=== PATIENT | male | born 1945 | race Caucasian/White ===

== ENCOUNTER 2017-05-27 14:25 | Inpatient (IN) | payer MEDICARE ==
[~2017-05-27] VITALS: Ht 175.3 cm; Wt 98.4 kg
[~2017-05-27 14:25] MED LIST: ALBUTEROL2.5 MG/3 M NEB; IPRATROPIU0.2 MG/1 M NEB; PREDNISONE20 MG PO; ULTRAM 50MG50 MG PO
--- OUTSIDE RECORDS SUMMARY | 2017-05-27 14:28 | XMS REPORT | Clinical Summary ---
Author Author DANISH [employer] [facility] [employer] [facility] Address Unknown Phone Unavailable Care Team Providers Care Test Facility Engineer Name Role Phone PCP Unavailable Allergies No Known Allergies Current Medications Prescription Sig. Disp. Refills Start End Date Status Date ipratropium (ATROVENT Inhale 2 puffs by mouth Active HFA) 17 mcg/actuation via inhaler as needed for inhaler Wheezing. albuterol (PROVENTIL) 2.5 Take 3 mLs (2.5 mg total) 75 mL 0 02/17/20 02/17/20 Active mg /3 mL (0.083 %) by nebulization every 6 17 18 nebulizer solution (six) hours as needed for Wheezing. albuterol (PROVENTIL) 2.5 Take 2.5 mg by 02/17/20 Discontin mg/0.5 mL Nebu nebulizer nebulization as needed. 17 ued solution predniSONE (DELTASONE) 20 Take 2 tablets (40 mg 10 tablet 0 02/17/20 02/22/20 MG tablet total) by mouth daily for 17 17 5 days. doxycycline (VIBRAMYCIN) Take 1 capsule (100 mg 20 capsule 0 02/17/20 02/27/20 100 MG capsule total) by mouth 2 (two) 17 17 times daily for 10 days. Active Problems Not on file Encounters Date Type Specialty Care Team Description 02/16/2017 Emergency Emergency Medicine Maurice Yuan MD Chest pain with moderate risk of acute coronary syndrome (Primary Dx);COPD with acute exacerbation (HCC);Shortness of breath 02/16/2017 Orders Only General Internal Medicine after 05/26/2016 Social History Tobacco Use Types Packs/Day Years Used Date Former Smoker Smokeless Tobacco: Chew Current User Alcohol Use Drinks/Week oz/Week Comments No Sex Assigned at Date Recorded Not on file Last Filed Vital Signs Vital Sign Reading Time Taken Blood Pressure 116/63 02/16/2017 8:30 PM CDT Pulse 80 02/16/2017 8:30 PM CDT Temperature 36.6 C (97.8 F) 02/16/2017 7:08 PM CDT Respiratory Rate 20 02/16/2017 7:30 PM CDT Oxygen Saturation 97% 02/16/2017 8:30 PM CDT Inhaled Oxygen - - Concentration Weight 92.5 kg (204 lb) 02/16/2017 7:08 PM CDT Height 175.3 cm (5' 9") 02/16/2017 7:08 PM CDT Body Mass Index 30.13 02/16/2017 7:08 PM CDT Plan of Treatment Not on file Results * CBC with platelet count + automated diff (02/16/2017 8:06 PM) Component Value Ref Range WBC 7.6 3.5 - 10.5 K/ L RBC 4.72 4.63 - 6.08 M/ L Hemoglobin 15.2 13.7 - 17.5 GM/DL Hematocrit 46.5 40.1 - 51.0 % MCV 98.5 (H) 79.0 - 92.2 fL MCH 32.2 25.7 - 32.2 pg MCHC 32.7 32.3 - 36.5 GM/DL RDW 12.9 11.6 - 14.4 % Platelets 245 150 - 450 K/CU MM MPV 8.8 (L) 9.4 - 12.4 fL nRBC 0 0 - 0 /100 WBC % Neutros 56 % % Lymphs 26 % % Monos 10 % % Eos 7 % % Baso 1 % # Neutros 4.28 1.78 - 5.38 K/ L # Lymphs 1.97 1.32 - 3.57 K/ L # Monos 0.76 0.30 - 0.82 K/ L # Eos 0.51 0.04 - 0.54 K/ L # Baso 0.07 0.01 - 0.08 K/ L Immature 0 0 - 1 % Granulocytes-Relative Specimen Performing Laboratory Blood - Arm, Left [facility] [address] [place] [address] * Troponin I (02/16/2017 8:06 PM) Component Value Ref Range Troponin I <0.01 0.00 - 0.03 ng/mL Specimen Performing Laboratory Blood - Arm, Left [facility] [address] [place] [address] Narrative Troponin I (TnI) levels must be interpreted in the context of the presenting symptoms and the clinical findings. Elevated TnI levels indicate myocardial damage, but are not specific for ischemic heart disease. Elevated TnI levels are seen in patients with other cardiac conditions (including myocarditis and congestive heart failure), and slight TnI elevations occur in patients with other conditions, including sepsis, renal failure, acidosis, acute neurological disease, and persistent tachyarrhythmia. * CBC with platelet count + automated diff (02/16/2017 8:06 PM) Specimen Performing Laboratory Blood Narrative The following orders were created for panel order CBC with platelet count + automated diff. Procedure Abnormality Status --------- - ------ CBC with platelet count ...[[id number]]AbnormalFinal result Please view results for these tests on the individual orders. * B-type Natriuretic Factor (BNP) (02/16/2017 8:06 PM) Component Value Ref Range BNP <10 0 - 100 pg/mL Specimen Performing Laboratory Blood - Arm, [address] [address] * Creatine Kinase (CK), Total and MB (02/16/2017 8:06 PM) Component Value Ref Range Total CK 164 29 - 200 U/L CK-MB 3.2 0.0 - 6.6 ng/mL MB Relative Index 2.0 % Specimen Performing Laboratory Blood - Arm, [address] [address] Narrative CK-MB Reference Range: <6.7Normal 6.7-10.0Borderline >10.0 Abnormal * Basic Metabolic Panel (02/16/2017 8:06 PM) Component Value Ref Range Sodium 140 136 - 145 meq/L Potassium 4.1Comment: Specimen slightly hemolyzed 3.5 - 5.1 meq/L Chloride 110 (H) 98 - 107 meq/L CO2 20 (L) 22 - 29 meq/L BUN 15 7 - 21 mg/dL Creatinine 1.29 (H)Comment: Specimen slightly hemolyzed 0.57 - 1.25 mg/dL Glucose 84 70 - 105 mg/dL Calcium 9.4 8.4 - 10.2 mg/dL EGFR 55Comment: ESTIMATED GFR IS NOT ACCURATE mL/min/1.73 sq m CREATININE CLEARANCE IN PREDICTING GLOMERULAR FILTRATION RATE. ESTIMATED GFR IS NOT APPLICABLE FOR DIALYSIS PATIENTS. Specimen Performing Laboratory Blood - Arm, Left [facility] [address] [address] * XR chest 1 view portable / bedside (02/16/2017 7:32 PM) Specimen Performing Laboratory GE RIS Narrative FINAL REPORT Comparison examination: None No pneumothorax, focal pulmonary consolidation, or significant pleural effusion. Normal cardiomediastinal contours. Normal skeleton and soft tissues. Impression: No acute abnormality. Signed: Shakir Stephen MD Report Verified Date/Time:02/16/2017 20:22:13 Reading Location: [address] Ortho Consult Reading Room Procedure Note Interface, External Ris In - 02/16/2017 8:24 PM CDT FINAL REPORT Comparison examination: None No pneumothorax, focal pulmonary consolidation, or significant pleural effusion. Normal cardiomediastinal contours. Normal skeleton and soft tissues. Impression: No acute abnormality. Signed: Shakir Stephen MD Report Verified Date/Time: 02/16/2017 20:22:13 Reading Location: [facility] C013 Ortho Consult Reading Room * ECG 12 lead (02/16/2017 7:16 PM) Specimen Performing Laboratory GE MUSE Narrative Ventricular Rate 78 BPM Atrial Rate 78 BPM P-R Interval 148 ms QRS Duration 106 ms Q-T Interval 384 ms QTC Calculation(Bazett) 437 ms P [place] 87 degrees R Dalton -35 degrees T Dalton 74 degrees Normal sinus rhythm Left axis deviation Abnormal ECG No previous ECGs available Confirmed by MD RAHEL, [facility] ([id number]) on 02/17/2017 6:02:25 PM Procedure Note Interface, External Ris In - 02/17/2017 6:02 PM CDT Ventricular Rate 78 BPM Atrial Rate 78 BPM P-R Interval 148 ms QRS Duration 106 ms Q-T Interval 384 ms QTC Calculation(Bazett) 437 ms P [place] 87 degrees R Dalton -35 degrees T [place] 74 degrees Normal sinus rhythm Left axis deviation Abnormal ECG No previous ECGs available Confirmed by MD RAHEL, YESSY ([id number]) on 02/17/2017 6:02:25 PM after 05/26/2016
--- OUTSIDE RECORDS SUMMARY | 2017-05-27 14:28 | XMS REPORT ---
Author Author [facility] Address Unknown Phone Unavailable Care Team Providers Care Blending Operator Name Role Phone MASON MARTÍNEZ Unavailable Unavailable ARMANDO WOLF Unavailable Unavailable FRANCINE SANDOVAL Unavailable Unavailable Problems This patient has no known problems. Allergies, Adverse Reactions, Alerts This patient has no known allergies or adverse reactions. Medications This patient has no known medications. Encounters Start Date/Time End Date/Time Encounter Type Admission Type Attending [facility] Facility Care Department Encounter ID 2017-01-24 00:00:00 2017-01-24 00:00:[address] [facility] [id number] 2017-01-17 00:00:00 2017-01-17 00:00:[address] [facility] [id number] 2017-01-03 13:40:00 2017-01-03 13:40:[address] [facility] [id number] 2016-12-18 00:00:00 2016-12-18 00:00:[address] [facility] [id number] 2016-12-07 00:00:00 2016-12-07 00:00:[address] [facility] [id number] 2016-12-04 06:19:36 2016-12-04 06:19:[address] [facility] [id number] 2016-12-03 10:40:23 2016-12-03 10:40:[address] [facility] [id number] 2016-12-03 09:42:52 2016-12-03 09:42:52 Outpatient [facility] [id number] Results Test Description Test Time Test Comments Text Results Atomic Results Result Comments B-TYPE NATRIURETIC FACTOR (BNP) 2017-02-16 21:21:00 B-TYPE NATRIURETIC PEPTIDE (BEAKER) (test fbac=523) < pg/mL 0-100 CREATINE KINASE (CK), TOTAL AND [id number] 20:55:00* Test Item Value Reference Range Comments CREATINE KINASE TOTAL (BEAKER) (test lzlk=012) 164 U/L 29-200 CREATINE KINASE-MB (BEAKER) (test fiwz=193) 3.2 ng/mL 0.0-6.6 CREATINE KINASE-MB INDEX (BEAKER) (test vwuf=653) 2.0 % CK-MB Reference Range:<6.7 Normal6.7-10.0 Borderline>10.0 AbnormalTROPONIN [id number] 20:55:00* Test Item Value Reference Range Comments TROPONIN I (BEAKER) (test pfhv=201) < ng/mL 0.00-0.03 Troponin I (TnI) levels must be interpreted [...] failure, acidosis, acute neurological disease, and persistent tachyarrhythmia.BASIC METABOLIC [id number] 20:49:00 * Test Item Value Reference Range Comments SODIUM (BEAKER) (test fyaf=650) 140 meq/L 136-145 POTASSIUM (BEAKER) (test dczt=146) 4.1 meq/L 3.5-5.1 Specimen slightly hemolyzed CHLORIDE (BEAKER) (test cshb=565) 110 meq/L 98-107 CO2 (BEAKER) (test wnfw=368) 20 meq/L 22-29 BLOOD UREA NITROGEN (BEAKER) (test xswj=607) 15 mg/dL 7-21 CREATININE (BEAKER) (test acea=996) 1.29 mg/dL 0.57-1.25 Specimen slightly hemolyzed GLUCOSE RANDOM (BEAKER) (test xoef=707) 84 mg/dL 70-105 CALCIUM (BEAKER) (test zukm=261) 9.4 mg/dL 8.4-10.2 EGFR (BEAKER) (test beoa=8040) 55 mL/min/1.73 sq m ESTIMATED GFR IS NOT ACCURATE CREATININE CLEARANCE IN PREDICTING GLOMERULAR FILTRATION RATE. ESTIMATED GFR IS NOT APPLICABLE FOR DIALYSIS PATIENTS. RAD, CHEST, 1 VIEW, NON [id number] 20:22:00Reason for exam:->SHORTNESS OF BREATHReason for exam:->CHEST PAINReason for exam:->COUGHShould this be performed at the bedside?->YesFINAL REPORT Comparison examination: None No pneumothorax, focal pulmonary consolidation, or significant pleural effusion. Normal cardiomediastinal contours. Normal skeleton and soft tissues. Impression: No acute abnormality. Signed: Shakir Stephen Verified Date/Time: 02/16/2017 20:22:13 Reading Location: [address] Ortho Consult Reading Room W/PLT COUNT & AUTO [id number] 20:21: 00* Test Item Value Reference Range Comments WHITE BLOOD CELL COUNT (BEAKER) (test ensm=545) 7.6 K/ L 3.5-10.5 RED BLOOD CELL COUNT (BEAKER) (test waqu=875) 4.72 M/ L 4.63-6.08 HEMOGLOBIN (BEAKER) (test eezg=255) 15.2 GM/DL 13.7-17.5 HEMATOCRIT (BEAKER) (test jotm=328) 46.5 % 40.1-51.0 MEAN CORPUSCULAR VOLUME (BEAKER) (test pbjv=613) 98.5 fL 79.0-92.2 MEAN CORPUSCULAR HEMOGLOBIN (BEAKER) (test obda=501) 32.2 pg 25.7-32.2 MEAN CORPUSCULAR HEMOGLOBIN CONC (BEAKER) (test hrpk=746) 32.7 GM/DL 32.3- 36.5 RED CELL DISTRIBUTION WIDTH (BEAKER) (test pubj=909) 12.9 % 11.6-14.4 PLATELET COUNT (BEAKER) (test txnu=130) 245 K/CU MM 150-450 MEAN PLATELET VOLUME (BEAKER) (test bxge=423) 8.8 fL 9.4-12.4 NUCLEATED RED BLOOD CELLS (BEAKER) (test cvxk=225) 0 /100 WBC 0-0 NEUTROPHILS RELATIVE PERCENT (BEAKER) (test ygzz=518) 56 % LYMPHOCYTES RELATIVE PERCENT (BEAKER) (test defn=911) 26 % MONOCYTES RELATIVE PERCENT (BEAKER) (test jxpo=832) 10 % EOSINOPHILS RELATIVE PERCENT (BEAKER) (test ovjg=230) 7 % BASOPHILS RELATIVE PERCENT (BEAKER) (test wzuu=284) 1 % NEUTROPHILS ABSOLUTE COUNT (BEAKER) (test ovkn=126) 4.28 K/ L 1.78-5.38 LYMPHOCYTES ABSOLUTE COUNT (BEAKER) (test zdml=274) 1.97 K/ L 1.32-3.57 MONOCYTES ABSOLUTE COUNT (BEAKER) (test uofl=237) 0.76 K/ L 0.30-0.82 EOSINOPHILS ABSOLUTE COUNT (BEAKER) (test gdyg=106) 0.51 K/ L 0.04-0.54 BASOPHILS ABSOLUTE COUNT (BEAKER) (test cejf=291) 0.07 K/ L 0.01-0.08 IMMATURE GRANULOCYTES-RELATIVE PERCENT (BEAKER) (test sdgl=7573) 0 % 0-1 CHEST SINGLE (PORTABLE) [place] [address] Patient Name: TOMEKA GONZALES MR #: [id number] : 1945 Age/Sex: 71/M Req #: [id number] Adm Physician: Ordered by: MASON MARTÍNEZ MD Report #: [id number] Location: ER Room/Bed: Procedure: [id number] DX/CHEST SINGLE (PORTABLE) Exam Date: 03/10/17 Exam Time: 1325 REPORT STATUS: Signed EXAMINATION: Chest, CHEST SINGLE ( PORTABLE) INDICATION: Chest pain COMPARISON: Portable chest 2016 FINDINGS: LINES: None. Heart: Normal cardiac silhouette. Vascular: The pulmonary vasculature is within normal limits. Atherosclerotic calcifications of the aortic arch. Mediastinum: No mediastinal, hilar, or axillary mass or lymphadenopathy. Lungs: No parenchymal mass. No focal consolidation. Pleura: No pleural effusion. No pneumothorax. Bones: No acute osseous abnormality. Degenerative changes of the thoracic spine. Soft tissues: Normal. Impression: No acute radiographic abnormality. Signed by: Dr. Shannon Lockhart M.D. on 1:37 PM Dictated By: SHANNON LOCKHART MD 36 Transcribed By: RADHA on 03/10/171336 COPY TO: MASON MARTÍNEZ MD CHEST 2 VIEWS [place] [address] Patient Name: TOMEKA GONZALES MR #: [id number] : 1945 Age/Sex: 71/ M Req #: [id number] Adm Physician: Ordered by: FRANCINE SANDOVAL MD Report #: [id number] Location: ER Room/Bed: ____ Procedure: [id number] DX/CHEST 2 VIEWS Exam Date: 12/25/16 Exam Time: 2019 REPORT STATUS: Signed Frontal and lateral views of the chest, 3 total views HISTORY: Shortness of breath, COPD COMPARISON: Chest radiographs August 12, 2016 . Chest radiograph August 10, 2016. DISCUSSION: Bilateral nipple shadows. Interval removal of the right-sided chest tube. Lungs: Biapical pleural -parenchymal scarring. No evidence of a consolidative pneumonia or pulmonary alveolar edema. Pleura: No pleural effusion or pneumothorax. Heart and mediastinum: The cardiomediastinal silhouette appears unremarkable. Bones: No acute osseous lesion. IMPRESSION: No acute radiographic abnormality. Signed by: Dr. Aarti Cortes M.D. on 2016 8:48 PM Dictated By: AARTI CORTES DO 47 Transcribed By: RADHA on 12/25/162047 COPY TO: FRANCINE SANDOVAL MD
[2017-05-27] MEDS ORDERED: METHYLPREDNISOLONE SOD SUCC 125 MG/2ML VIAL IV ONE (15:15)
[2017-05-27] MEDS ORDERED: ALBUTEROL SULF 0.083% NEB SOLN 3 ML NEB NEB ONE (15:30)
[2017-05-27] MEDS ORDERED: IPRATROPIUM BROMIDE 0.02% 2.5 ML NEB NEB ONE (15:30)
--- NOTE | 2017-05-27 16:43 | Diagnostic Imaging Report ---
PROCEDURE: Frontal and lateral views of the chest. COMPARISON: 12/25/2016. INDICATIONS: SOB FINDINGS: Lines/tubes: None. Lungs: The lungs are well inflated. There is biapical pleural and parenchymal scarring which appears stable. There is no evidence of pneumonia or pulmonary edema. Bilateral nipple shadows are visible. Pleura: There is no pleural effusion or pneumothorax. Heart and mediastinum: The heart and the mediastinum are normal. Bones: No acute bony abnormality. IMPRESSION: No significant interval change. Biapical pleural and parenchymal scarring. No evidence of acute infection or edema. Dictated by: Mo Cast M.D. on 05/27/2017 at 16:53 Electronically approved by: Mo Cast M.D. on 05/27/2017 at 16:53
[2017-05-27 18:33] LABS: BASOPHILS # (AUTO) 0.1 (0.0-0.1); BASOPHILS % 0.9 % (0.0-1.0); EOSINOPHILS # (AUTO) 0.6 (0.0-0.4); EOSINOPHILS % 7.5 % (0.0-6.0); HEMATOCRIT 45.6 % (38.2-49.6); HEMOGLOBIN 15.6 g/dL (14.0-18.0); LYMPHOCYTES # (AUTO) 2.3 (1.0-3.2); LYMPHOCYTES % 28.5 % (18.0-39.1); MEAN CORPUSCULAR HEMOGLOBIN 32.5 pg (28-32); MEAN CORPUSCULAR HGB CONC 34.2 g/dL (31-35); MONOCYTES # (AUTO) 0.7 (0.2-0.8); NEUTROPHILS # (AUTO) 4.3 (2.1-6.9); NEUTROPHILS % 53.8 % (38.7-80.0); PLATELET COUNT 311 x10e3/uL (140-360); RED CELL DISTRIBUTION WIDTH 12.3 % (11.7-14.4)
[2017-05-27 18:53] LABS: ALBUMIN 4.1 g/dL (3.5-5.0); ALBUMIN/GLOBULIN RATIO 1.1 (0.8-2.0); ANION GAP 14.9 mmol/L (8-16); CALCIUM 9.5 mg/dL (8.4-10.2); CREATININE, SERUM 1.41 mg/dL (0.72-1.25); POTASSIUM 3.9 mmol/L (3.5-5.1)
--- OUTSIDE RECORDS SUMMARY | 2017-05-27 20:22 | XMS REPORT | Clinical Summary ---
Author Author DANISH [employer] [facility] [email or web address] [facility] Address Unknown Phone Unavailable Care Team Providers Care Frame Table Operator Helper Name Role Phone PCP Unavailable Allergies No [...] Performing Laboratory Blood - Arm, Left [facility] [address] [place] [address] * Troponin I (02/16/2017 8:06 PM) Component Value Ref Range Troponin I <0.01 0.00 - 0.03 ng/mL Specimen Performing Laboratory Blood - Arm, Left [facility] [address] [place] [address] Narrative Troponin I (TnI) levels must be [...] --------- - ------ CBC with platelet count ...[[id number]]AbnormalFinal result Please view results for these tests on the individual orders. * B-type Natriuretic Factor (BNP) (02/16/2017 8:06 PM) Component Value Ref Range BNP <10 0 - 100 pg/mL Specimen Performing Laboratory Blood - Arm, [address] [address] * Creatine Kinase (CK), Total and MB (02/16/2017 8:06 PM) Component Value Ref Range Total CK 164 29 - 200 U/L CK-MB 3.2 0.0 - 6.6 ng/mL MB Relative Index 2.0 % Specimen Performing Laboratory Blood - Arm, [address] [address] Narrative CK-MB Reference Range: <6.7Normal 6.7-10.0Borderline >10.0 [...] Performing Laboratory Blood - Arm, Left [facility] [address] [address] * XR chest 1 view portable / bedside (02/16/2017 7:32 PM) Specimen Performing Laboratory GE RIS Narrative FINAL REPORT Comparison examination: None No pneumothorax, focal pulmonary consolidation, or significant pleural effusion. Normal cardiomediastinal contours. Normal skeleton and soft tissues. Impression: No acute abnormality. Signed: Shakir Stephen MD Report Verified Date/Time:02/16/2017 20:22:13 Reading Location: [address] Ortho Consult Reading Room Procedure Note Interface, External Ris In - 02/16/2017 8:24 PM CDT FINAL REPORT Comparison examination: None No pneumothorax, focal pulmonary consolidation, or significant pleural effusion. Normal cardiomediastinal contours. Normal skeleton and soft tissues. Impression: No acute abnormality. Signed: Shakir Stephen MD Report Verified Date/Time: 02/16/2017 20:22:13 Reading Location: [facility] C013 Ortho Consult Reading Room * ECG 12 lead (02/16/2017 7:16 PM) Specimen Performing Laboratory GE MUSE Narrative Ventricular Rate 78 BPM Atrial Rate 78 BPM P-R Interval 148 ms QRS Duration 106 ms Q-T Interval 384 ms QTC Calculation(Bazett) 437 ms P [place] 87 degrees R [place] -35 degrees T [place] 74 degrees Normal sinus rhythm Left axis deviation Abnormal ECG No previous ECGs available Confirmed by MD RAHEL, [facility] ([id number]) on 02/17/2017 6:02:25 PM Procedure Note Interface, External Ris In - 02/17/2017 6:02 PM CDT Ventricular Rate 78 BPM Atrial Rate 78 BPM P-R Interval 148 ms QRS Duration 106 ms Q-T Interval 384 ms QTC Calculation(Bazett) 437 ms P [place] 87 degrees R [place] -35 degrees T [place] 74 degrees Normal sinus rhythm Left axis deviation Abnormal ECG No previous ECGs available Confirmed by MD RAHEL, YESSY ([id number]) on 02/17/2017 6:02:25 PM after 05/26/2016
[2017-05-27] MEDS: SODIUM CHLORIDE 0.9% 1000ML 1,000 ML IV SCH (20:37)
[2017-05-27] MEDS: DOXYCYCLINE HYCLATE TABLET 100 MG TAB PO SCH (20:38)
[2017-05-27] MEDS ORDERED: ALBUTEROL/IPRATROPIUM 3 ML NEB NEB SCH (23:00)
[2017-05-27] MEDS: METHYLPREDNISOLONE SOD SUCC 40 MG/ML VIAL IV SCH (23:16)
[2017-05-28] VITALS (8 sets, daily range): BP systolic 119–147; BP diastolic 65–82
[2017-05-28] MEDS: SODIUM CHLORIDE 0.9% 1000ML 1,000 ML IV SCH ×3 (04:23→19:51)
[2017-05-28] MEDS: METHYLPREDNISOLONE SOD SUCC 40 MG/ML VIAL IV SCH ×3 (05:04→21:13)
[2017-05-28 06:21] LABS: BASOPHILS % 0.2 % (0.0-1.0); HEMATOCRIT 43.7 % (38.2-49.6); HEMOGLOBIN 14.8 g/dL (14.0-18.0); LYMPHOCYTES # (AUTO) 0.5 (1.0-3.2); LYMPHOCYTES % 12.2 % (18.0-39.1); MEAN CORPUSCULAR HEMOGLOBIN 32.2 pg (28-32); MEAN CORPUSCULAR HGB CONC 33.9 g/dL (31-35); MEAN CORPUSCULAR VOLUME 95.2 fL (81-99); MONOCYTES % 0.7 % (4.4-11.3); NEUTROPHILS # (AUTO) 3.6 (2.1-6.9); NEUTROPHILS % 86.4 % (38.7-80.0); PLATELET COUNT 294 x10e3/uL (140-360); RED BLOOD COUNT 4.59 x10e6/uL (4.3-5.7)
--- NOTE | 2017-05-28 06:42 | Diagnostic Imaging Report ---
EXAMINATION: CHEST SINGLE (PORTABLE) INDICATION: COPD. COMPARISON: 05/27/2017 FINDINGS: TUBES and LINES: None. LUNGS: Lungs are well inflated. Lungs are clear. There is no evidence of pneumonia or pulmonary edema. PLEURA: No pleural effusion or pneumothorax. HEART AND MEDIASTINUM: The cardiomediastinal silhouette is unremarkable. BONES AND SOFT TISSUES: No acute osseous lesion. Soft tissues are unremarkable. UPPER ABDOMEN: No free air under the diaphragm. IMPRESSION: No acute thoracic abnormality. Signed by: Dr. Clement Alicea M.D. on 05/28/2017 6:38 AM
[2017-05-28 06:43] LABS: ANION GAP 14.3 mmol/L (8-16); CALCIUM 8.8 mg/dL (8.4-10.2); CREATININE, SERUM 1.21 mg/dL (0.72-1.25); POTASSIUM 4.3 mmol/L (3.5-5.1)
[2017-05-28 06:53] LABS: CREATINE KINASE MB 6.9 ng/mL (0.00-5.00)
[2017-05-28] MEDS: ALBUTEROL/IPRATROPIUM 3 ML NEB NEB SCH ×3 (07:45→23:00)
[2017-05-28] MEDS ORDERED: claritin PO (08:47)
[2017-05-28] MEDS ORDERED: SINGULAIR10 MG PO (08:47)
[2017-05-28] MEDS: FAMOTIDINE 20 MG TAB PO SCH ×2 (08:51→17:29)
[2017-05-28] MEDS: GUAIFENESIN 600MG/DEXTROMETHORPHAN 30MG TABSR PO SCH ×2 (08:51→17:29)
[2017-05-28] MEDS: BENZONATATE 100 MG CAP PO SCH ×3 (08:51→19:51)
[2017-05-28] MEDS: DOXYCYCLINE HYCLATE TABLET 100 MG TAB PO SCH ×2 (08:51→19:51)
[2017-05-28] MEDS: ASPIRIN 81 MG CHEW TAB PO SCH (08:51)
[2017-05-28] MEDS: HEPARIN SOD (PORCINE) 5,000 UNIT/ML VIAL SC SCH ×2 (08:52→20:13)
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
[2017-05-28] MEDS: ALBUTEROL/IPRATROPIUM 3 ML NEB NEB PRN ×2 (11:48→20:33)
[2017-05-28 14:46] LABS: CREATINE KINASE 208 IU/L (30-200)
[2017-05-28] MEDS: MONTELUKAST SODIUM 10 MG TAB PO SCH (16:53)
[2017-05-29] VITALS: BP 114/60
[2017-05-29 04:00] VITALS: BP 133/72
[2017-05-29] MEDS: SODIUM CHLORIDE 0.9% 1000ML 1,000 ML IV SCH (04:18)
[2017-05-29] MEDS: METHYLPREDNISOLONE SOD SUCC 40 MG/ML VIAL IV SCH ×3 (05:01→21:43)
--- NOTE | 2017-05-29 07:36 | Progress Note ---
DATE: May 29, 2017 TIME: 7:15 a.m. OVERNIGHT: Still short of breath with ambulation. REVIEW OF SYSTEMS: Denies any dizziness. PHYSICAL EXAMINATION VITAL SIGNS: Reviewed. GENERAL: A tired-appearing man resting in bed. HEENT: Anicteric. CARDIOVASCULAR: Normal S1 and S2. LUNGS: Moderate breath sounds. Scattered wheezing. Reduced breath sounds at the base. ABDOMEN: Soft and nontender. EXTREMITIES: No edema. SKIN: Dry. PSYCHIATRIC: Flat affect. LABS: Reviewed. MEDICATIONS: Reviewed. ASSESSMENT: A 72-year-old man with: 1. Acute bronchitis. 2. Acute kidney injury. 3. Obesity. 4. Dyspnea on exertion. 5. History of right lung nodule. 6. Cough. PLAN 1. Continues to be profoundly short of breath with ambulation. Will obtain a CTA to rule out pulmonary embolism. 2. Continue doxycycline and steroid therapy and nebs. 3. Flu screen was negative. 4. Acute kidney injury is improving. 5. Continue steroid therapy. 6. Continue antitussive. 7. Continue Singulair and loratadine. 8. Follow up CT scan. Job#: [id number] LID[place]
[2017-05-29 07:53] VITALS: BP 140/63
[2017-05-29 11:33] VITALS: BP 142/75
[2017-05-29] MEDS: FAMOTIDINE 20 MG TAB PO SCH ×2 (12:10→16:30)
[2017-05-29] MEDS: DOXYCYCLINE HYCLATE TABLET 100 MG TAB PO SCH ×2 (12:10→21:43)
[2017-05-29] MEDS: GUAIFENESIN 600MG/DEXTROMETHORPHAN 30MG TABSR PO SCH ×2 (12:11→16:57)
[2017-05-29] MEDS: LORATADINE 10 MG TAB PO SCH (12:11)
[2017-05-29] MEDS: BENZONATATE 100 MG CAP PO SCH ×3 (12:11→21:43)
[2017-05-29] MEDS: ASPIRIN 81 MG CHEW TAB PO SCH (12:11)
[2017-05-29] MEDS: HEPARIN SOD (PORCINE) 5,000 UNIT/ML VIAL SC SCH ×2 (12:12→21:45)
--- NOTE | 2017-05-29 14:16 | Diagnostic Imaging Report ---
EXAM: CT Chest WITH contrast (PE Protocol) INDICATION: \S\PROFOUND COLLINS, r/o PE. \S\[id number] \S\1120 COMPARISON: Chest CT dated 08/09/2016 TECHNIQUE: Chest was scanned utilizing a multidetector helical scanner from the lung apex through the level of the diaphragm after administration of IV contrast. Thin section reconstructions were obtained with special concentration on the pulmonary arteries. Coronal and sagittal reformations were obtained. Pulmonary embolism protocol was performed. IV CONTRAST: 100 mL of Isovue-370 COMPLICATIONS: None RADIATION DOSE: Total DLP: 560.38 mGy*cm Estimated effective dose: (DLP x 0.014 x size factor) mSv CTDIvol has been reviewed. It is below the limits set by the Radiation Protocol Committee (RPC). FINDINGS: LINES/ TUBES: None. LUNGS AND AIRWAYS: No filling defect is identified within the pulmonary arteries to the segmental level. Redemonstration of biapical scarring. Right apical cavitation along the thick-walled scarring is not significantly changed, measuring approximately 3.7 cm. Unchanged adjacent medial nodule measuring 1.5 x 1.1 cm (series 3, image 34). There are also stable slightly more inferior nodules measuring 7 and 5 mm (series 3, images 36 and 37). Pulmonary vascular congestion. Upper lobe predominant centrilobular and paraseptal emphysematous changes. Airways are normal. PLEURA: The pleural spaces are clear. HEART AND MEDIASTINUM: No mediastinal or axillary lymphadenopathy. Unchanged prominent hilar lymph nodes, measuring 0.9 cm on the right and 0.7 cm on the left side. The heart is normal in size.. There is no pericardial effusion. . UPPER ABDOMEN: Unremarkable BONES: The visualized bony thorax is within normal limits. SOFT TISSUES: Unremarkable. IMPRESSION: No pulmonary emboli. Redemonstration of biapical scarring, cavitation along the right apex thick-walled scarring, and adjacent right apical nodules, not significantly changed from CT dated 08/09/2016. Signed by: Dr. Ralf Arreaga MD on 05/29/2017 2:12 PM
[2017-05-29 16:17] VITALS: BP 129/71
[2017-05-29] MEDS: MONTELUKAST SODIUM 10 MG TAB PO SCH (16:57)
[2017-05-29] MEDS ORDERED: SODIUM CHLORIDE 0.9% 50ML 50 ML ONE (20:15)
[2017-05-29] MEDS ORDERED: IOPAMIDOL 370 MG/ML 200 ML INFUS..BTL INJ ONE (20:15)
[2017-05-29 22:16] VITALS: BP 141/85
[2017-05-29] MEDS: ALBUTEROL/IPRATROPIUM 3 ML NEB NEB SCH (22:55)
[2017-05-30] VITALS (7 sets, daily range): BP systolic 97–142; BP diastolic 62–109
[2017-05-30] MEDS: METHYLPREDNISOLONE SOD SUCC 40 MG/ML VIAL IV SCH ×3 (05:41→21:30)
[2017-05-30] MEDS: ALBUTEROL/IPRATROPIUM 3 ML NEB NEB SCH ×3 (06:48→23:35)
[2017-05-30] MEDS: DOXYCYCLINE HYCLATE TABLET 100 MG TAB PO SCH ×2 (07:30→20:06)
[2017-05-30] MEDS: FAMOTIDINE 20 MG TAB PO SCH ×2 (07:30→16:30)
[2017-05-30] MEDS: BENZONATATE 100 MG CAP PO SCH ×3 (08:30→20:08)
[2017-05-30] MEDS: ASPIRIN 81 MG CHEW TAB PO SCH (08:30)
[2017-05-30] MEDS: HEPARIN SOD (PORCINE) 5,000 UNIT/ML VIAL SC SCH ×2 (08:30→20:11)
[2017-05-30] MEDS: LORATADINE 10 MG TAB PO SCH (08:30)
[2017-05-30] MEDS: GUAIFENESIN 600MG/DEXTROMETHORPHAN 30MG TABSR PO SCH ×2 (08:30→17:00)
[2017-05-30] MEDS: MONTELUKAST SODIUM 10 MG TAB PO SCH (17:00)
--- NOTE | 2017-05-30 18:24 | Progress Note ---
DATE: May 30, 2017 at 3:30 p.m. SUBJECTIVE: Overnight feeling a little better. He is able to ambulate with less shortness of breath. REVIEW OF SYSTEMS: Denies any dizziness. SUBJECTIVE: VITAL SIGNS: Reviewed. GENERAL: A tired-appearing man resting in bed. HEENT: Anicteric. CARDIOVASCULAR: Normal S1 and S2. LUNGS: Reduced breath sounds throughout, minimal air movement. ABDOMEN: Soft and nontender. EXTREMITIES: No edema or calf tenderness. NEUROLOGIC: Alert and oriented x3. Moves all extremities. SKIN: Dry. PSYCHIATRIC: Flat affect. LABS: Reviewed. MEDICATIONS: Reviewed. ASSESSMENT: A 72-year-old man with: 1. Acute bronchitis. 2. Acute kidney injury. 3. Obesity. 4. Dyspnea on exertion. 5. History of right lung nodule. 6. Cough. PLAN: 1. Continue oxygen, nebulizers and antibiotics. 2. Continue physical therapy. 3. Continue ambulation. 4. Influenza screening was negative. 5. Acute kidney injury is improving. 6. The patient's exercise tolerance is improving. 7. Obtain labs tomorrow morning. 8. Discharge planning. 9. CT scan of his chest was unchanged from prior. It showed no pericardial effusion and it showed no pulmonary embolism. There was biapical scarring, cavitation along the right apex with thin-walled scarring, which is unchanged. Job#: [id number]
[2017-05-31] VITALS: BP 150/83
[2017-05-31 04:00] VITALS: BP 120/72
[2017-05-31] MEDS: METHYLPREDNISOLONE SOD SUCC 40 MG/ML VIAL IV SCH (05:16)
[2017-05-31 07:00] VITALS: BP 153/82
[2017-05-31] MEDS: ALBUTEROL/IPRATROPIUM 3 ML NEB NEB SCH (07:00)
[2017-05-31 07:23] LABS: BASOPHILS % 0.1 % (0.0-1.0); HEMATOCRIT 41.5 % (38.2-49.6); HEMOGLOBIN 13.9 g/dL (14.0-18.0); LYMPHOCYTES # (AUTO) 0.4 (1.0-3.2); LYMPHOCYTES % 4.4 % (18.0-39.1); MEAN CORPUSCULAR HEMOGLOBIN 31.9 pg (28-32); MEAN CORPUSCULAR HGB CONC 33.5 g/dL (31-35); MEAN CORPUSCULAR VOLUME 95.2 fL (81-99); MONOCYTES # (AUTO) 0.5 (0.2-0.8); MONOCYTES % 5.2 % (4.4-11.3); NEUTROPHILS % 89.1 % (38.7-80.0); PLATELET COUNT 283 x10e3/uL (140-360); RED BLOOD COUNT 4.36 x10e6/uL (4.3-5.7); RED CELL DISTRIBUTION WIDTH 12.1 % (11.7-14.4)
[2017-05-31 07:24] VITALS: BP 153/82
[2017-05-31] MEDS ORDERED: COLACE100 M1 PO (07:39)
[2017-05-31] MEDS ORDERED: PREDNISONE20 MG PO (07:39)
[2017-05-31] MEDS ORDERED: TESSALON PERLE100 MG PO (07:39)
[2017-05-31] MEDS ORDERED: ASPIRIN CHEW81 MG PO (07:39)
[2017-05-31] MEDS ORDERED: FAMOTIDINE20 MG PO (07:39)
[2017-05-31] MEDS ORDERED: VIBRAMYCIN100 MG PO (07:39)
[2017-05-31] MEDS ORDERED: MUCINEX DM ER1 EACH PO (07:39)
[2017-05-31 07:47] LABS: ANION GAP 11.8 mmol/L (8-16); BLOOD UREA NITROGEN 20 mg/dL (7-26); BUN/CREATININE RATIO 19 (6-25); CALCIUM 8.7 mg/dL (8.4-10.2); CARBON DIOXIDE 28 mmol/L (22-29); CHLORIDE 105 mmol/L (98-107); CREATININE, SERUM 1.04 mg/dL (0.72-1.25); EST GLOMERULAR FILTRATION RATE > 60 ML/MIN (60-); GLUCOSE 197 mg/dL (74-118); POTASSIUM 3.8 mmol/L (3.5-5.1); SODIUM 141 mmol/L (136-145)
[2017-05-31] MEDS: GUAIFENESIN 600MG/DEXTROMETHORPHAN 30MG TABSR PO SCH (08:39)
[2017-05-31] MEDS: HEPARIN SOD (PORCINE) 5,000 UNIT/ML VIAL SC SCH (08:39)
[2017-05-31] MEDS: LORATADINE 10 MG TAB PO SCH (08:39)
[2017-05-31] MEDS: ASPIRIN 81 MG CHEW TAB PO SCH (08:39)
[2017-05-31] MEDS: DOXYCYCLINE HYCLATE TABLET 100 MG TAB PO SCH (08:39)
[2017-05-31] MEDS: FAMOTIDINE 20 MG TAB PO SCH (08:39)
[2017-05-31] MEDS: BENZONATATE 100 MG CAP PO SCH (08:39)
[2017-05-31] MEDS ORDERED: DOCUSATE SODIUM 100 MG CAP PO SCH (09:00)
--- NOTE | 2017-05-31 16:59 | Discharge Summary ---
PRINCIPAL DIAGNOSES 1. Acute bronchitis. 2. Acute kidney injury. 3. Obesity. 4. Dyspnea on exertion. 5. Cough. SECONDARY DIAGNOSIS: Right lung nodule. CHIEF COMPLAINT: Shortness of breath. HISTORY OF PRESENT ILLNESS: This is a 72-year-old man with shortness of breath. Please refer to the H\T\P for further details. HOSPITAL COURSE: Patient was found to have acute bronchitis, treated with antibiotics and steroid therapy. He received nebs and oxygen support. He had dyspnea on exertion which improved during the hospitalization and acute kidney injury which also improved. He had obesity, counseled on caloric restriction. He had dyspnea on exertion which has been improving. He has a history of right lung nodule which was unchanged on imaging. He needs to follow up outpatient. He was also treated for cough. Patient is doing better and currently appropriate for discharge. He has oxygen at home, will need to continue the oxygen p.r.n. DISCHARGE MEDICATIONS: Per electronic medical records and include oxygen. FOLLOWUP: With me in 1 week. CONDITION ON DISCHARGE: Stable and improving. DISCHARGE LOCATION: Home with oxygen therapy. HELENE ORTEGA MD Job#: [id number]
== END 2017-05-31 10:34 | disposition home or self-care (01) | DRG 202 ==
LOC: ER 14:25 → ERHOLD 20:19 → IMCU 23:41 → OBSVTOIN 05-28 16:21 → MED/SURG3 05-29 12:36
PROVIDERS: ADMIT Internal Medicine; ATTEND Internal Medicine
DX: J20.9 Acute bronchitis, unspecified (principal); N17.9 Acute kidney failure, unspecified; E66.9 Obesity, unspecified; Z68.32 Body mass index [BMI] 32.0-32.9, adult; F17.210 Nicotine dependence, cigarettes, uncomplicated; R91.1 Solitary pulmonary nodule
CPT/HCPCS: 36415; 71045; 71046; 71260; 80048; 80053; 82550; 82553; 83880; 84484; 85025; 87400; 93005; 94640; 99284; G0378; J1644; J2920; J2930; J7030; Q9967

== ENCOUNTER 2017-08-17 15:01 | Emergency (ER) | payer MEDICARE ==
[~2017-08-17] VITALS: Ht 175.3 cm; Wt 98.4 kg
[~2017-08-17 15:01] MED LIST changes: +ASPIRIN CHEW81 MG PO; +COLACE100 M1 PO; +FAMOTIDINE20 MG PO; +MUCINEX DM ER1 EACH PO; +SINGULAIR10 MG PO; +TESSALON PERLE100 MG PO; +VIBRAMYCIN100 MG PO; +claritin PO
[2017-08-17] MEDS ORDERED: IPRATROPIUM BROMIDE 0.02% 2.5 ML NEB NEB STA (15:03)
[2017-08-17] MEDS ORDERED: ALBUTEROL SULF 0.083% NEB SOLN 3 ML NEB NEB STA (15:03)
--- OUTSIDE RECORDS SUMMARY | 2017-08-17 15:04 | XMS REPORT | Clinical Summary ---
Author Author DAN[facility] [employer] [facility] Address Unknown Phone Unavailable Care Team Providers Care Collector Of Port Name Role Phone PCP Unavailable Allergies No [...] 02/16/2017 Orders Only General Internal Medicine after 08/16/2016 Social History Tobacco Use Types Packs/Day Years [...] Performing Laboratory Blood - Arm, Left [facility] [address] [place] [address] * Troponin I (02/16/2017 8:06 PM) Component Value Ref Range Troponin I <0.01 0.00 - 0.03 ng/mL Specimen Performing Laboratory Blood - Arm, Left [facility] [address] [place] [address] Narrative Troponin I (TnI) levels must be [...] --------- - ------ CBC with platelet count ...[[id number]]AbnormalFinal result Please view results for these tests on the individual orders. * B-type Natriuretic Factor (BNP) (02/16/2017 8:06 PM) Component Value Ref Range BNP <10 0 - 100 pg/mL Specimen Performing Laboratory Blood - Arm, [address] [address] * Creatine Kinase (CK), Total and MB (02/16/2017 8:06 PM) Component Value Ref Range Total CK 164 29 - 200 U/L CK-MB 3.2 0.0 - 6.6 ng/mL MB Relative Index 2.0 % Specimen Performing Laboratory Blood - Arm, [address] [address] Narrative CK-MB Reference Range: <6.7Normal 6.7-10.0Borderline >10.0 [...] Performing Laboratory Blood - Arm, Left [facility] [address] [address] * XR chest 1 view portable / bedside (02/16/2017 7:32 PM) Specimen Performing Laboratory GE RIS Narrative FINAL REPORT Comparison examination: None No pneumothorax, focal pulmonary consolidation, or significant pleural effusion. Normal cardiomediastinal contours. Normal skeleton and soft tissues. Impression: No acute abnormality. Signed: Shakir Stephen MD Report Verified Date/Time:02/16/2017 20:22:13 Reading Location: [address] Ortho Consult Reading Room Procedure Note Interface, External Ris In - 02/16/2017 8:24 PM CDT FINAL REPORT Comparison examination: None No pneumothorax, focal pulmonary consolidation, or significant pleural effusion. Normal cardiomediastinal contours. Normal skeleton and soft tissues. Impression: No acute abnormality. Signed: Shakir Stephen MD Report Verified Date/Time: 02/16/2017 20:22:13 Reading Location: [facility] C013 Ortho Consult Reading Room * ECG 12 lead (02/16/2017 7:16 PM) Specimen Performing Laboratory GE MUSE Narrative Ventricular Rate 78 BPM Atrial Rate 78 BPM P-R Interval 148 ms QRS Duration 106 ms Q-T Interval 384 ms QTC Calculation(Bazett) 437 ms P Spencer 87 degrees R Spencer -35 degrees T Spencer 74 degrees Normal sinus rhythm Left axis deviation Abnormal ECG No previous ECGs available Confirmed by MD RAHEL, [facility] ([id number]) on 02/17/2017 6:02:25 PM Procedure Note Interface, External Ris In - 02/17/2017 6:02 PM CDT Ventricular Rate 78 BPM Atrial Rate 78 BPM P-R Interval 148 ms QRS Duration 106 ms Q-T Interval 384 ms QTC Calculation(Bazett) 437 ms P Spencer 87 degrees R Spencer -35 degrees T Spencer 74 degrees Normal sinus rhythm Left axis deviation Abnormal ECG No previous ECGs available Confirmed by MD RAHEL, YESSY ([id number]) on 02/17/2017 6:02:25 PM after 08/16/2016
--- OUTSIDE RECORDS SUMMARY | 2017-08-17 15:04 | XMS REPORT | Continuity of Care Document ---
Author Author [facility] Organization [facility] Address [address] [place] [address] Phone Unavailable Care Team Providers Care Air Bag Builder Name Role Phone HELENE ORTEGA MD PCP Unavailable Insurance Providers Guarantor Tomeka Acevedo Address [address] [place] [address] Email [email or web address] Payer Self Pay Subscriber's Name Tomeka Acevedo Advance Directives Directive Response Recorded Date/Time Does the patient have an advance directive? No 05/28/17 12:48am If yes, is advance directive on file with [facility]? No 05/28/17 12:48am If not on file with [facility] will patient provide a copy? Yes 05/28/17 12:48am Do you have a Directive to Physician? No 05/27/17 3:39pm Do you have a Medical Power of Sheet Heater? No 05/27/17 3:39pm Do you have an out of hospital Do Not Resuscitate Order? No 05/27/17 3:39pm Do you have any special needs we should be aware of? No 05/27/17 3:39pm Do you have a support person here with you today? Yes 05/27/17 3:39pm Did patient receive Notice of Privacy Practices? Yes 05/27/17 3:39pm Did patient receive patient rights and responsibilities? Yes 05/27/17 3:39pm Problems No problem information available. Medications Current Home Medications Medication Dose Units Route Directions Days Qty Instructions Start Date Albuterol Sulfate 2.5 Mg/3 Ml Vial.neb 3 Ml Nebullizer Rt Q4h 30 Days 1 Aer 08/20/16 Aspirin (Aspirin Chew) 81 Mg Chew 81 Mg Oral Daily 30 Days 05/31/17 Benzonatate (Tessalon Perle) 100 Mg Capsule 100 Mg Oral Three Times A Day 30 Days 05/31/17 Claritin 10 Mg Oral Daily Docusate Sodium (Colace) 100 Mg Capsule 100 Mg Oral Twice A Day 30 Days 05/31/17 Doxycycline Hyclate (Vibramycin) 100 Mg Capsule 100 Mg Oral Every 12 Hours 5 Days 05/31/17 Famotidine 20 Mg Tab 20 Mg Oral Twice Daily Before Meals 30 Days Guaifenesin/Dextromethorphan (Mucinex Dm Er 600-30 Mg Tablet) 1 Each Tab.er.12h 2 Each Oral Twice A Day 7 Days 05/31/17 Ipratropium [place] 0.2 Mg/1 Ml Solution 2.5 Ml Nebullizer Rt Q6h 30 Days 1 Aer 08/20/16 Montelukast Sodium (Singulair) 10 Mg Tablet 10 Mg Oral Daily Prednisone 20 Mg Tab 20 Mg Oral Every 12 Hours 14 05/31/17 Past Home Medications Medication Directions Ordered Status Prednisone 20 Mg Tab, 20 Mg Oral Daily 08/20/16 Discontinued Tramadol Hcl (Ultram 50MG*) 50 Mg Tab, 50 Mg Oral Twice A Day as needed for Pain 08/20/16 Discontinued Social History Social History Problem Response Recorded Date/Time Onset Date Status Hx Psychiatric Problems No 05/28/2017 12:48am Not Applicable Not Applicable Hx Eating Disorder No 05/28/2017 12:48am Not Applicable Not Applicable Hx Substance Use Disorder No 05/28/2017 12:48am Not Applicable Not Applicable Hx Depression No 05/28/2017 12:48am Not Applicable Not Applicable Hx Alcohol Use No 05/28/2017 12:48am Not Applicable Not Applicable Hx Substance Use Treatment No 05/28/2017 12:48am Not Applicable Not Applicable Hx Physical Abuse No 05/28/2017 12:48am Not Applicable Not Applicable Smoking Status Start Date Stop Date Former smoker Hospital Discharge Instructions No hospital discharge instruction information available. Plan of Care Discharge Date 05/31/17 10:34am Disposition HOME, SELF-CARE Instructions/Education Provided COPD Dyspnea Prescriptions See Medication Section Referrals pcp (Internal Medicine) Order Date: 5-7 Days Entered Date: 05/31/2017 7:41am Functional Status Query Response Date Recorded Assistive Devices None May 28, 2017 12:50am Ambulation Ability Independent May 28, 2017 12:50am Toileting Ability Independent May 30, 2017 4:33pm Allergies, Adverse Reactions, Alerts Allergen Type Severity Reaction Status Last Updated Glucosamine Allergy Mild Itching Active 03/10/17 penicillin Allergy Unknown Active 08/09/16 Immunizations No immunization information available. Vital Signs Acute Vital Signs Vital Response Date/Time Temperature (Fahrenheit) 95.5 degrees F (97.6 - 99.5) 05/31/2017 7:24am Pulse Pulse Rate (adult) 104 bpm (60 - 90) 05/31/2017 7:50am Respiratory Rate 18 bpm (12 - 24) 05/31/2017 7:50am Blood Pressure 153/82 mm Hg 05/31/2017 7:24am Height 5 ft 9 in 05/27/2017 3:03pm Weight 217 lb 05/31/2017 12:00am Body Mass Index 32.0 kg/m^2 05/31/2017 12:00am Results Laboratory Results Test Name Result Units Flags Reference Collection Date/Time Result Date/ Time Comments Bedside Glucose 85 mg/dL 70-120 08/09/2016 8:53pm 08/09/2016 9:08pm Meter ID: [id number] Hemoglobin A1c Percent 5.0 % 4.0-7.0 08/10/2016 6:50am 08/10/2016 9: 17am Phosphorus Level 3.0 MG/DL 2.3-4.7 08/20/2016 5:44am 08/20/2016 6:35am Magnesium Level 2.0 MG/DL 1.3-2.1 08/20/2016 5:44am 08/20/2016 6:35am Triglycerides Level 111 MG/DL 0-149 08/10/2016 6:50am 08/10/2016 9: 17am Cholesterol Level 149 MD/DL 0-199 08/10/2016 6:50am 08/10/2016 9:17am Less than 200 mg/dL Low Risk 201 - 239 mg/dL Borderline Risk 240 mg/dl and greater High Risk LDL Cholesterol 83 MG/DL 60-130 08/10/2016 6:50am 08/10/2016 9:17am HDL Cholesterol 44 MG/DL 40-60 08/10/2016 6:50am 08/10/2016 9:17am Cholesterol/HDL Ratio 3.4 L 3.9-4.7 08/10/2016 6:50am 08/10/2016 9: 17am HIV (1&2) Antibody NON-REACTIVE NONREACTIVE 08/10/2016 1:00am 2016 1:50am HIV P24 Antigen NON-REACTIVE NONREACTIVE 08/10/2016 1:00am 2016 1:50am p-ANCA Titer <1:20 titer Neg:<1:20 08/12/2016 5:30am 08/14/2016 12: 47pm The presence of positive fluorescence exhibiting P-ANCA or C-ANCA patterns alone is not specific for the diagnosis of Rock's Granulomatosis (WG) or microscopic polyangiitis. Decisions about treatment should not be based solely on ANCA IFA results. The International ANCA Group Consensus recommends follow up testing of positive sera with both NE- 3 and MPO-ANCA enzyme immunoassays. As many as 5% serum samples are positive only by EIA. Ref. AM J Clin Pathol 1999;111:507-513. c-ANCA Titer <1:20 titer Neg:<1:20 08/12/2016 5:30am 08/14/2016 12: 47pm Atypical p-ANCA <1:20 titer Neg:<1:20 08/12/2016 5:30am 08/14/2016 12: 47pm The atypical pANCA pattern has been observed in a significant percentage of patients with ulcerative colitis, primary sclerosing cholangitis and autoimmune hepatitis. Performed at: [address] [id number] Manager [employer] Security: Wojciech Ryan MD, Phone: [phone] TB Test (T-Spot) RESULT: NEGATIVE Testing performed by: [facility] [address] [place] [id number] Dir: Tomeka Banks MD 08/10/2016 3:50pm 08/22/2016 12:29pm Group A Streptococcus Screen NEGATIVE NEGATIVE 08/10/2016 1:00am 1:34am Prothrombin Time 12.6 seconds 11.9-14.5 03/10/2017 12:47pm 03/10/2017 3 :18pm Prothromb Time International Ratio 0.90 03/10/2017 12:47pm 2016 3:18pm Oral Anticoagulant Therapy INR Values: 1. Low Intensity Therapy 1.5 - 2.0 2. Moderate Intensity Therapy 2.0 - 3.0 3. High Intensity Therapy(1) 2.5 - 3.5 4. High Intensity Therapy(2) 3.0 - 4.0 5. Panic Value INR > 5.0 Activated Partial Thromboplast Time 38.2 seconds H 23.8-35.5 03/10/2017 12:47pm 03/10/2017 3:18pm Urine Color YELLOW YELLOW 03/10/2017 12:47pm 03/10/2017 1:26pm Urine Clarity CLEAR CLEAR 03/10/2017 12:47pm 03/10/2017 1:26pm Urine Specific [place] 1.025 1.010-1.025 03/10/2017 12:47pm 2016 1:26pm Urine pH 5 5 - 7 03/10/2017 12:47pm 03/10/2017 1:26pm Urine Leukocyte Esterase NEGATIVE NEGATIVE 03/10/2017 12:47pm 2016 1:26pm Urine Nitrite NEGATIVE NEGATIVE 03/10/2017 12:47pm 03/10/2017 1:26pm Urine Protein NEGATIVE NEGATIVE 03/10/2017 12:47pm 03/10/2017 1:26pm Urine Glucose (UA) NEGATIVE NEGATIVE 03/10/2017 12:47pm 03/10/2017 1: 26pm Urine Ketones NEGATIVE NEGATIVE 03/10/2017 12:47pm 03/10/2017 1:26pm Urine Urobilinogen 0.2 mg/dL 0.2 - 1 03/10/2017 12:47pm 03/10/2017 1: 26pm Urine Bilirubin NEGATIVE NEGATIVE 03/10/2017 12:47pm 03/10/2017 1: 26pm Urine Blood NEGATIVE NEGATIVE 03/10/2017 12:47pm 03/10/2017 1:26pm Urine WBC 0-5 /HPF 0-5 03/10/2017 12:47pm 03/10/2017 1:41pm Urine RBC 0-5 /HPF 0-5 03/10/2017 12:47pm 03/10/2017 1:41pm Urine Bacteria RARE /HPF NONE 03/10/2017 12:47pm 03/10/2017 1:41pm Urine Epithelial Cells FEW /LPF NONE 03/10/2017 12:47pm 03/10/2017 1: 41pm Urine Mucus FEW H RARE 03/10/2017 12:47pm 03/10/2017 1:41pm White Blood Count 9.01 x10e3/uL # 4.8-10.8 05/31/2017 6:39am 05/31/2017 7 :27am Red Blood Count 4.36 x10e6/uL 4.3-5.7 05/31/2017 6:39am 05/31/2017 7: 27am Hemoglobin 13.9 g/dL L 14.0-18.0 05/31/2017 6:39am 05/31/2017 7:27am Hematocrit 41.5 % 38.2-49.6 05/31/2017 6:39am 05/31/2017 7:27am Mean Corpuscular Volume 95.2 fL 81-99 05/31/2017 6:39am 05/31/2017 7: 27am Mean Corpuscular Hemoglobin 31.9 pg 28-32 05/31/2017 6:39am 05/31/2017 7:27am Mean Corpuscular Hemoglobin Concent 33.5 g/dL 31-35 05/31/2017 6:39am 05/31/2017 7:27am Red Cell Distribution Width 12.1 % 11.7-14.4 05/31/2017 6:39am 2017 7:27am Platelet Count 283 x10e3/uL 140-360 05/31/2017 6:39am 05/31/2017 7: 27am Neutrophils (%) (Auto) 89.1 % H 38.7-80.0 05/31/2017 6:39am 05/31/2017 7 :27am Lymphocytes (%) (Auto) 4.4 % L 18.0-39.1 05/31/2017 6:39am 05/31/2017 7: 27am Monocytes (%) (Auto) 5.2 % 4.4-11.3 05/31/2017 6:39am 05/31/2017 7: 27am Eosinophils (%) (Auto) 0.0 % 0.0-6.0 05/31/2017 6:39am 05/31/2017 7: 27am Basophils (%) (Auto) 0.1 % 0.0-1.0 05/31/2017 6:39am 05/31/2017 7:27am IM GRANULOCYTES % 1.2 % H 0.0-1.0 05/31/2017 6:39am 05/31/2017 7:27am Neutrophils # (Auto) 8.0 H 2.1-6.9 05/31/2017 6:39am 05/31/2017 7: 27am Lymphocytes # (Auto) 0.4 L 1.0-3.2 05/31/2017 6:39am 05/31/2017 7: 27am Monocytes # (Auto) 0.5 0.2-0.8 05/31/2017 6:39am 05/31/2017 7:27am Eosinophils # (Auto) 0.0 0.0-0.4 05/31/2017 6:39am 05/31/2017 7:27am Basophils # (Auto) 0.0 0.0-0.1 05/31/2017 6:39am 05/31/2017 7:27am Absolute Immature Granulocyte (auto 0.11 x10e3/uL H 0-0.1 05/31/2017 6: 39am 05/31/2017 7:27am Sodium Level 141 mmol/L 136-145 05/31/2017 6:39am 05/31/2017 7:48am Potassium Level 3.8 mmol/L 3.5-5.1 05/31/2017 6:39am 05/31/2017 7:48am Chloride Level 105 mmol/L 98-107 05/31/2017 6:39am 05/31/2017 7:48am Influenza Virus Types A,B Antigen NEGATIVE NEGATIVE 05/28/2017 9:00am 05/28/2017 10:09am Carbon Dioxide Level 28 mmol/L 22-29 05/31/2017 6:39am 05/31/2017 7: 48am Anion Gap 11.8 mmol/L 8-16 05/31/2017 6:39am 05/31/2017 7:48am Blood Urea Nitrogen 20 mg/dL 7-26 05/31/2017 6:39am 05/31/2017 7:48am Creatinine 1.04 mg/dL 0.72-1.25 05/31/2017 6:39am 05/31/2017 7:48am BUN/Creatinine Ratio 19 6-25 05/31/2017 6:39am 05/31/2017 7:48am Estimat Glomerular Filtration Rate > 60 ML/MIN 60- 05/31/2017 6:39am 7:48am Ranges were taken from the National Kidney Disease Education Program and the National Kidney Foundation literature. Reference ranges: 60 or greater: Normal 16-59 (for 3 consecutive months): Chronic kidney disease 15 or less: Kidney failure Glucose Level 197 mg/dL H 74-118 05/31/2017 6:39am 05/31/2017 7:48am Calcium Level 8.7 mg/dL 8.4-10.2 05/31/2017 6:39am 05/31/2017 7:48am Total Bilirubin 1.1 mg/dL 0.2-1.2 05/27/2017 6:05pm 05/27/2017 7:03pm Aspartate Amino Transf (AST/SGOT) 32 IU/L 5-34 05/27/2017 6:05pm 2017 7:03pm Alanine Aminotransferase (ALT/SGPT) 28 IU/L 0-55 05/27/2017 6:05pm 08/2017 7:03pm Total Protein 7.7 g/dL 6.5-8.1 05/27/2017 6:05pm 05/27/2017 7:03pm Albumin 4.1 g/dL 3.5-5.0 05/27/2017 6:05pm 05/27/2017 7:03pm Globulin 3.6 g/dL H 2.3-3.5 05/27/2017 6:05pm 05/27/2017 7:03pm Albumin/Globulin Ratio 1.1 0.8-2.0 05/27/2017 6:05pm 05/27/2017 7: 03pm Alkaline Phosphatase 69 IU/L 40-150 05/27/2017 6:05pm 05/27/2017 7: 03pm B-Type Natriuretic Peptide < 10.0 pg/mL 0-100 05/27/2017 6:05pm 2017 7:02pm Creatine Kinase 208 IU/L H 30-200 05/28/2017 2:20pm 05/28/2017 2:48pm Creatine Kinase MB 6.50 ng/mL H 0.00-5.00 05/28/2017 2:20pm 05/28/2017 2 :56pm Troponin I < 0.001 ng/mL 0-0.300 05/28/2017 2:20pm 05/28/2017 2:56pm Microbiology Results Procedure Source Organism/Result Collection Date/Time Result Date/Time Result Status Blood Culture Blood NO GROWTH AFTER 5 DAYS, FINAL REPORT 08/09/2016 10: 55am 08/14/2016 12:00pm Final Procedures Procedure Status Date Provider(s) EXCISION OF RIGHT UPPER LUNG LOBE, PERC APPROACH, DIAGN Completed 08/10/16 RHONDA MCKINLEY MD DRAINAGE OF R PLEURAL CAV WITH DRAIN DEV, PERC APPROACH Completed 08/10/16 RHONDA MCKINLEY MD DRAINAGE OF RIGHT UPPER LUNG LOBE, PERC APPROACH, DIAGN Completed 08/10/16 RHONDA MCKINLEY MD REMOVAL OF DRAIN DEV FROM R PLEURAL CAV, PERSONNEL CONSULTANT APPROACH Completed 08/16/16 MARK GRANDE MD X-ray of chest, two views Active 08/09/16 MASON MARTÍNEZ MD Computed tomography of chest with contrast Active 08/09/16 MASON MARTÍNEZ MD CT orbit/ear/fossa w/o dye Active 08/10/16 HELENE ORTEGA MD X-ray of chest, single view Active 08/16/16 HELENE ORTEGA MD X-ray of chest, two views Active 12/25/16 FRANCINE SANDOVAL MD X-ray of chest, two views Active 05/27/17 TOMEKA MANNING NP Computed tomography of chest with contrast Active 05/29/17 HELENE ORTEGA MD Encounters Encounter Location Arrival/Admit Date Discharge/Depart Date Attending Provider Discharged Inpatient [facility] 05/28/17 4:21pm 05/31/17 10:34am HELENE ORTEGA MD Departed Emergency Room [facility] 03/10/17 12:15pm 03/10 4:55pm MASON MARTÍNEZ MD Departed Emergency Room [facility] 12/25/16 7:37pm 1:12am FRANCINE SANDOVAL MD Discharged Inpatient [facility] 08/13/16 10:31am 12:07pm HELENE ORTEGA MD
[2017-08-17] MEDS ORDERED: METHYLPREDNISOLONE SOD SUCC 125 MG/2ML VIAL IV ONE (16:00)
--- NOTE | 2017-08-17 16:11 | Diagnostic Imaging Report ---
EXAMINATION: Chest, CHEST 2 VIEWS INDICATION: Chest pain COMPARISON: Chest 2 views 05/27/2017 FINDINGS: LINES: None. Heart: Normal cardiac silhouette. Vascular: The pulmonary vasculature is within normal limits. Mediastinum: No mediastinal, hilar, or axillary mass or lymphadenopathy. Lungs: No parenchymal mass. No focal consolidation. Pleura: No pleural effusion. No pneumothorax. Bones: No acute osseous abnormality. Degenerative changes of the thoracic spine. Soft tissues: Normal. Impression: No acute radiographic abnormality. Signed by: Dr. Lionel Quigley M.D. on 08/17/2017 4:07 PM
[2017-08-17 16:22] LABS: BASOPHILS # (AUTO) 0.1 (0.0-0.1); BASOPHILS % 0.9 % (0.0-1.0); EOSINOPHILS # (AUTO) 0.5 (0.0-0.4); EOSINOPHILS % 6.7 % (0.0-6.0); HEMATOCRIT 43.9 % (38.2-49.6); HEMOGLOBIN 15.5 g/dL (14.0-18.0); LYMPHOCYTES % 25.4 % (18.0-39.1); MEAN CORPUSCULAR HEMOGLOBIN 32.2 pg (28-32); MEAN CORPUSCULAR HGB CONC 35.3 g/dL (31-35); MEAN CORPUSCULAR VOLUME 91.3 fL (81-99); MONOCYTES # (AUTO) 0.8 (0.2-0.8); MONOCYTES % 10.5 % (4.4-11.3); NEUTROPHILS # (AUTO) 4.5 (2.1-6.9); NEUTROPHILS % 55.9 % (38.7-80.0); PLATELET COUNT 298 x10e3/uL (140-360); RED BLOOD COUNT 4.81 x10e6/uL (4.3-5.7); RED CELL DISTRIBUTION WIDTH 13.2 % (11.7-14.4)
[2017-08-17] MEDS ORDERED: ALBUTEROL SULF 0.083% NEB SOLN 3 ML NEB ONE (16:40)
[2017-08-17 17:00] LABS: INR 1.09; PROTHROMBIN TIME 13.3 seconds (11.9-14.5)
[2017-08-17 17:01] LABS: PARTIAL THROMBOPLASTIN TIME 33.4 seconds (23.8-35.5)
[2017-08-17 17:09] LABS: ALANINE AMINOTRANSFERASE 21 IU/L (0-55); ALBUMIN 3.6 g/dL (3.5-5.0); ALBUMIN/GLOBULIN RATIO 0.9 (0.8-2.0); ALKALINE PHOSPHATASE 66 IU/L (40-150); ANION GAP 16.4 mmol/L (8-16); BLOOD UREA NITROGEN 15 mg/dL (7-26); BUN/CREATININE RATIO 12 (6-25); CALCIUM 9.7 mg/dL (8.4-10.2); CARBON DIOXIDE 23 mmol/L (22-29); CHLORIDE 105 mmol/L (98-107); CREATINE KINASE 113 IU/L (30-200); CREATININE, SERUM 1.22 mg/dL (0.72-1.25); EST GLOMERULAR FILTRATION RATE 59 ML/MIN (60-); GLUCOSE 104 mg/dL (74-118); POTASSIUM 4.4 mmol/L (3.5-5.1); SODIUM 140 mmol/L (136-145)
[2017-08-17 17:24] LABS: CLARITY,URINE CLEAR (CLEAR); COLOR,URINE YELLOW (YELLOW)
[2017-08-17 17:25] LABS: BILIRUBIN,URINE NEGATIVE (NEGATIVE); KETONES,URINE NEGATIVE (NEGATIVE); LEUKOCYTE ESTERASE ,URINE NEGATIVE (NEGATIVE); NITRITE,URINE NEGATIVE (NEGATIVE); PROTEIN,URINE DIPSTICK NEGATIVE (NEGATIVE); URINE UROBILINOGEN 0.2 mg/dL (0.2 - 1)
[2017-08-17 17:32] LABS: BACTERIA,URINE FEW /HPF; EPITHELIAL CELLS,URINE FEW /LPF; WBC,URINE (MAN) 0-5 /HPF (0-5)
[2017-08-17 18:40] VITALS: BP 127/73
== END 2017-08-17 18:53 | disposition home or self-care (01) ==
LOC: ER 15:01
DX: R07.9 Chest pain, unspecified (principal); R06.00 Dyspnea, unspecified; J44.1 Chronic obstructive pulmonary disease with (acute) exacerbation
CPT/HCPCS: 36415; 71046; 80053; 81001; 82550; 82553; 83880; 84484; 85025; 85610; 85730; 87086; 93005; 94640; 99284; J2930

== ENCOUNTER 2018-02-12 07:15 | Observation (INO) | payer MEDICARE, OTHER ==
[~2018-02-12] VITALS: Ht 175.3 cm; Wt 51.0 kg
[2018-02-12] MEDS ORDERED: ALBUTEROL SULF 0.083% NEB SOLN 3 ML NEB NEB STA (07:30)
[2018-02-12] MEDS ORDERED: METHYLPREDNISOLONE SOD SUCC 125 MG/2ML VIAL IV ONE (07:30)
[2018-02-12] MEDS ORDERED: SODIUM CHLORIDE FLUSH 10 ML SYR INJ PRN (07:30)
[2018-02-12] MEDS ORDERED: SODIUM CHLORIDE 0.9% 1000ML 1,000 ML IV ONE (07:30)
[2018-02-12] MEDS ORDERED: LEVOFLOXACIN 750MG/D5W 150ML 150 ML IV ONE (07:30)
[2018-02-12] MEDS ORDERED: ASPIRIN 81 MG CHEW TAB PO ONE ×2 (07:30→08:00)
[2018-02-12] MEDS ORDERED: IPRATROPIUM BROMIDE 0.02% 2.5 ML NEB NEB STA (07:30)
[2018-02-12 07:59] LABS: BASOPHILS # (AUTO) 0.1 (0.0-0.1); BASOPHILS % 1.1 % (0.0-1.0); EOSINOPHILS # (AUTO) 0.5 (0.0-0.4); EOSINOPHILS % 6.9 % (0.0-6.0); HEMATOCRIT 45.5 % (38.2-49.6); LYMPHOCYTES # (AUTO) 1.3 (1.0-3.2); LYMPHOCYTES % 20.4 % (18.0-39.1); MEAN CORPUSCULAR HEMOGLOBIN 32.9 pg (28-32); MEAN CORPUSCULAR HGB CONC 35.2 g/dL (31-35); MEAN CORPUSCULAR VOLUME 93.4 fL (81-99); MONOCYTES # (AUTO) 0.7 (0.2-0.8); NEUTROPHILS % 61.3 % (38.7-80.0); PLATELET COUNT 271 x10e3/uL (140-360); RED BLOOD COUNT 4.87 x10e6/uL (4.3-5.7); RED CELL DISTRIBUTION WIDTH 12.8 % (11.7-14.4)
[2018-02-12] MEDS ORDERED: CLONIDINE HCL 0.1 MG TAB PO PRN (08:00)
[2018-02-12] MEDS ORDERED: ENALAPRILAT IV INJ 1.25 MG/ML VIAL IV PRN (08:00)
[2018-02-12] MEDS ORDERED: ZOLPIDEM TARTRATE 5 MG TAB PO PRN (08:00)
[2018-02-12] MEDS ORDERED: PROMETHAZINE 12.5MG/ NACL 0.9% 12.5 MG/50 ML BAG IV PRN (08:00)
[2018-02-12] MEDS ORDERED: HYDROCODONE/APAP 7.5MG-325MG 1 EA TAB PO PRN (08:00)
[2018-02-12] MEDS ORDERED: DIPHENHYDRAMINE HCL 25 MG CAP PO PRN (08:00)
[2018-02-12] MEDS ORDERED: ACETAMINOPHEN 325 MG TAB PO PRN (08:00)
[2018-02-12] MEDS ORDERED: IBUPROFEN 400 MG TAB PO PRN (08:00)
[2018-02-12] MEDS ORDERED: ONDANSETRON HCL INJ 2 MG/ML VIAL IV PRN (08:00)
[2018-02-12] MEDS ORDERED: HYDRALAZINE HCL 20 MG/ML VIAL IV PRN (08:00)
[2018-02-12] MEDS ORDERED: MORPHINE SULFATE 2 MG/ML SYR IV PRN (08:00)
[2018-02-12 08:24] LABS: ALANINE AMINOTRANSFERASE 22 IU/L (0-55); ALBUMIN/GLOBULIN RATIO 1.3 (0.8-2.0); ALKALINE PHOSPHATASE 89 IU/L (40-150); ANION GAP 11.8 mmol/L (8-16); BLOOD UREA NITROGEN 11 mg/dL (7-26); BUN/CREATININE RATIO 9 (6-25); CALCIUM 10.1 mg/dL (8.4-10.2); CARBON DIOXIDE 28 mmol/L (22-29); CHLORIDE 103 mmol/L (98-107); CREATINE KINASE 104 IU/L (30-200); EST GLOMERULAR FILTRATION RATE 60 ML/MIN (60-); GLUCOSE 127 mg/dL (74-118); POTASSIUM 3.8 mmol/L (3.5-5.1); SODIUM 139 mmol/L (136-145)
[2018-02-12] MEDS: METHYLPREDNISOLONE SOD SUCC 40 MG/ML VIAL IV SCH ×2 (09:00→21:43)
--- NOTE | 2018-02-12 09:22 | Diagnostic Imaging Report ---
PROCEDURE: CHEST SINGLE (PORTABLE) COMPARISON: Patients [facility], DX, CHEST 2 VIEWS, 08/17/2017, 15:16. INDICATIONS: COPD, DYSPNEA FINDINGS: LUNGS: Lungs are hyperexpanded. No focal consolidation. Biapical pleural thickening again noted; more prominent on the right. PLEURA: No effusions or pneumothorax. HEART & MEDIASTINUM: The heart is within normal size-limits. BONES & SOFT TISSUES: No acute findings. CONCLUSION: Mild hyperexpansion lung steinberg without acute abnormality. Matthew Castaneda D.O. Dictated by: Matthew Castaneda D.O. on 02/12/2018 at 9:31 Electronically approved by: Matthew Castaneda D.O. on 02/12/2018 at 9:31
[2018-02-12] MEDS: ASPIRIN 81 MG CHEW TAB PO SCH (11:19)
[2018-02-12] MEDS: LORATADINE 10 MG TAB PO SCH (11:19)
[2018-02-12] MEDS: BENZONATATE 100 MG CAP PO SCH ×3 (11:19→21:43)
[2018-02-12] MEDS: DOCUSATE SODIUM 100 MG CAP PO SCH ×2 (11:19→17:00)
[2018-02-12] MEDS: MONTELUKAST SODIUM 10 MG TAB PO SCH (11:19)
[2018-02-12 11:40] VITALS: BP 114/64
[2018-02-12 12:09] VITALS: BP 114/64
[2018-02-12] MEDS ORDERED: ATORVASTATIN CA20 MG PO (12:27)
[2018-02-12] MEDS ORDERED: RIFAMPIN300 MG PO (12:27)
[2018-02-12] MEDS ORDERED: COREG3.125 MG PO (12:27)
[2018-02-12] MEDS ORDERED: IPRATROPIUM BROMIDE 0.02% 2.5 ML NEB NEB SCH (13:00)
[2018-02-12 14:27] VITALS: BP 114/64
[2018-02-12] MEDS: LACTATED RINGER'S 1,000 ML IV SCH (14:30)
[2018-02-12] MEDS: GUAIFENESIN/DEXTROMETHORPHAN LIQD 5 ML UDC NG SCH ×2 (14:45→21:43)
[2018-02-12] MEDS: ALBUTEROL/IPRATROPIUM 3 ML NEB NEB SCH ×2 (15:00→17:15)
[2018-02-12 16:27] VITALS: BP 119/59
[2018-02-12] MEDS ORDERED: FAMOTIDINE 20 MG TAB PO SCH (16:30)
[2018-02-12 16:51] LABS: CREATINE KINASE 94 IU/L (30-200)
[2018-02-12] MEDS ORDERED: ALBUTEROL/IPRATROPIUM 3 ML NEB NEB PRN (17:00)
[2018-02-12] MEDS: FAMOTIDINE 20 MG TAB PO SCH (17:10)
[2018-02-12] MEDS: ENOXAPARIN SOD INJ 40 MG/0.4 ML SYR SC SCH (17:10)
[2018-02-12 20:00] VITALS: BP 121/59
--- NOTE | 2018-02-12 20:51 | Consultation ---
PULMONARY CONSULTATION REASON FOR CONSULTATION: Shortness of breath. HPI: Mr. Acevedo is a 72-year-old male who has a history of COPD, follows up with Dr. Huff, came in with worsening shortness of breath for [address] Huff in the office first for lung nodule and then lost to follow. He denies any complaints of chest pain, nausea or vomiting. He quit smoking a year ago. Smoked for 40+ years. Denies any chest pain, nausea, vomiting. REVIEW OF SYSTEMS GENERAL: Denies any fever or chills. HEAD: Denies any head trauma. ENT: Denies any earache. CVS: Denies any chest pain. RESPIRATORY: Shortness of breath. GI: Denies any nausea or vomiting. Rest of the review of systems are negative except as in HPI. PAST MEDICAL HISTORY: Pulmonary nodule, cavitary lesion, obesity. PAST SURGICAL HISTORY: Back surgery, nephrectomy. PHYSICAL EXAMINATION: VITAL SIGNS: Temperature 96.9, pulse of 80, blood pressure 119/59, respiratory rate of 18. HEENT: Head atraumatic, normocephalic. NECK: Supple. CHEST: Markedly reduced air entry bilaterally. HEART: S1, S2 audible. ABDOMEN: Soft, nontender. EXTREMITIES: No clubbing, cyanosis or edema. NEUROLOGIC: Awake, alert, oriented. No focal neurological deficit. LABS: White count of 6.4, hemoglobin 16.0, platelets 271,000. Chemistries within normal limits. X-RAYS: Chest x-ray is not showing any focal infiltrate. Pleural thickening biapical. ASSESSMENT/PLAN: Mr. Acevedo is a 72-year-old male who has history of lung nodule, chronic obstructive pulmonary disease. His pulmonary function test was done at [facility] on December 05, 2017, which showed FEV1 of 37%, ratio of 30% and was diagnosed with severe obstructive pulmonary disease with significant bronchodilator response. CURRENT PROBLEMS 1. Acute chronic obstructive pulmonary disease exacerbation. 2. History of lung nodule. Last followup CT scan was at [facility] and it was in May 2017. At that time, they have reported that patient has biapical scarring and nodules and unchanged from CT of 2017. I will reorder a CT scan to further evaluate that. 3. 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 Treatment was discussed when he saw Dr. Huff in the office, but he then lost to follow. Option of sending him to [facility] lung disease center was also discussed with him by Dr. Huff. 4. At this point, I will continue the patient on IV Solu-Medrol for COPD exacerbation. Continue Levaquin. I will repeat a CT scan of the chest to further evaluate the lung nodule. I will also discuss with him about starting the MAC treatment as an outpatient. Thank you for this consult. Job#: [id number]
[2018-02-12] MEDS: CARVEDILOL 3.125 MG TAB PO SCH (21:00)
[2018-02-12] MEDS ORDERED: ATORVASTATIN 40 MG TAB PO SCH (21:00)
--- NOTE | 2018-02-12 21:35 | Diagnostic Imaging Report ---
EXAM: CT CHEST WO DATE: 02/12/2018 7:02 PM INDICATION: Lung nodule COMPARISON: 06/08/2017, 08/09/2016 TECHNIQUE: Multidetector CT scanning of the chest was performed. Coronal and sagittal multiplanar reformations were obtained. CT low dose techniques were utilized, as applicable. IV Contrast: 0 ml Isovue 370/300 FINDINGS: LUNGS AND PLEURA: Underlying emphysema. Stable biapical lung opacities with linear and nodular components and right apical cavitation with thickened nodular rim. The largest nodule measures 17 mm, stable. Unchanged 8 mm medial left basilar subpleural nodule. No effusions or pneumothorax. HEART, MEDIASTINUM, VESSELS: Normal heart size. No pericardial effusion. Stable small right suprahilar nodes.. Minimal atherosclerotic aortic and coronary calcification is noted. UPPER ABDOMEN: Unremarkable. MUSCULOSKELETAL: No acute findings. IMPRESSION: No significant interval change. Stable biapical scarring, right thick-walled cavitation, and nodules, which may reflect superimposed chronic infection or fungal colonization. Correlate with prior biopsy. Signed by: Dr Karla Vargas MD on 02/12/2018 9:31 PM
[2018-02-12 21:47] VITALS: BP 121/59
[2018-02-13] VITALS (8 sets, daily range): BP systolic 104–129; BP diastolic 51–81
[2018-02-13] MEDS: ALBUTEROL/IPRATROPIUM 3 ML NEB NEB SCH ×7 (00:10→23:25)
[2018-02-13] MEDS: LACTATED RINGER'S 1,000 ML IV SCH (03:59)
[2018-02-13 05:13] LABS: BASOPHILS % 0.5 % (0.0-1.0); EOSINOPHILS % 0.5 % (0.0-6.0); HEMATOCRIT 40.7 % (38.2-49.6); LYMPHOCYTES # (AUTO) 1.6 (1.0-3.2); LYMPHOCYTES % 21.3 % (18.0-39.1); MEAN CORPUSCULAR HEMOGLOBIN 32.5 pg (28-32); MEAN CORPUSCULAR HGB CONC 34.4 g/dL (31-35); MEAN CORPUSCULAR VOLUME 94.4 fL (81-99); MONOCYTES # (AUTO) 0.6 (0.2-0.8); MONOCYTES % 7.6 % (4.4-11.3); NEUTROPHILS # (AUTO) 5.1 (2.1-6.9); NEUTROPHILS % 69.7 % (38.7-80.0); PLATELET COUNT 261 x10e3/uL (140-360); RED BLOOD COUNT 4.31 x10e6/uL (4.3-5.7); RED CELL DISTRIBUTION WIDTH 12.8 % (11.7-14.4)
[2018-02-13 05:34] LABS: CREATINE KINASE 87 IU/L (30-200)
[2018-02-13] MEDS: GUAIFENESIN/DEXTROMETHORPHAN LIQD 5 ML UDC NG SCH ×3 (05:47→21:52)
[2018-02-13 06:09] LABS: ANION GAP 11.8 mmol/L (8-16); CALCIUM 9.4 mg/dL (8.4-10.2); CREATININE, SERUM 1.2 mg/dL (0.72-1.25); POTASSIUM 3.8 mmol/L (3.5-5.1)
[2018-02-13] MEDS: FAMOTIDINE 20 MG TAB PO SCH ×2 (07:29→17:11)
[2018-02-13] MEDS ORDERED: LEVOFLOXACIN 500MG/D5W 100ML 100 ML IV SCH (09:00)
[2018-02-13] MEDS ORDERED: LEVOFLOXACIN 500MG/D5W 100ML IV SCH (09:00)
[2018-02-13] MEDS ORDERED: RIFAMPIN 300 MG CAP PO SCH (09:00)
[2018-02-13] MEDS: METHYLPREDNISOLONE SOD SUCC 40 MG/ML VIAL IV SCH ×2 (09:35→21:51)
[2018-02-13] MEDS: DOCUSATE SODIUM 100 MG CAP PO SCH ×2 (09:35→17:11)
[2018-02-13] MEDS: LORATADINE 10 MG TAB PO SCH (09:35)
[2018-02-13] MEDS: ASPIRIN 81 MG CHEW TAB PO SCH (09:35)
[2018-02-13] MEDS: CARVEDILOL 3.125 MG TAB PO SCH ×2 (09:35→21:52)
[2018-02-13] MEDS: BENZONATATE 100 MG CAP PO SCH ×3 (09:36→21:52)
[2018-02-13] MEDS: MONTELUKAST SODIUM 10 MG TAB PO SCH (09:36)
[2018-02-13] MEDS: ENOXAPARIN SOD INJ 40 MG/0.4 ML SYR SC SCH (17:11)
[2018-02-13] MEDS ORDERED: ATORVASTATIN 20 MG TAB PO SCH (21:00)
[2018-02-13] MEDS ORDERED: ATORVASTATIN 40 MG TAB PO SCH (21:00)
[2018-02-14 00:45] VITALS: BP 119/63
[2018-02-14] MEDS: ALBUTEROL/IPRATROPIUM 3 ML NEB NEB SCH ×3 (02:45→14:26)
[2018-02-14 05:10] VITALS: BP 103/62
[2018-02-14] MEDS: GUAIFENESIN/DEXTROMETHORPHAN LIQD 5 ML UDC NG SCH ×2 (05:31→14:00)
[2018-02-14] MEDS ORDERED: PREDNISONE20 MG PO (06:13)
[2018-02-14] MEDS ORDERED: MUCINEX DM ER1 EACH PO (06:13)
[2018-02-14] MEDS ORDERED: TESSALON PERLE100 MG PO (06:13)
[2018-02-14] MEDS: FAMOTIDINE 20 MG TAB PO SCH ×2 (07:30→17:27)
[2018-02-14 08:23] VITALS: BP 118/77
[2018-02-14 08:28] VITALS: BP 118/77
[2018-02-14] MEDS: MONTELUKAST SODIUM 10 MG TAB PO SCH (09:04)
[2018-02-14] MEDS: CARVEDILOL 3.125 MG TAB PO SCH (09:04)
[2018-02-14] MEDS: METHYLPREDNISOLONE SOD SUCC 40 MG/ML VIAL IV SCH (09:04)
[2018-02-14] MEDS: DOCUSATE SODIUM 100 MG CAP PO SCH ×2 (09:04→17:27)
[2018-02-14] MEDS: BENZONATATE 100 MG CAP PO SCH ×2 (09:04→15:00)
[2018-02-14] MEDS: LORATADINE 10 MG TAB PO SCH (09:04)
[2018-02-14] MEDS: ASPIRIN 81 MG CHEW TAB PO SCH (09:04)
[2018-02-14 12:24] VITALS: BP 133/66
[2018-02-14 16:48] VITALS: BP 138/70
[2018-02-14] MEDS: ENOXAPARIN SOD INJ 40 MG/0.4 ML SYR SC SCH (17:27)
== END 2018-02-14 17:50 | disposition home or self-care (01) ==
LOC: ER 07:15 → ERHOLD 09:58 → IMCU 11:14
PROVIDERS: ADMIT Internal Medicine; ATTEND Internal Medicine
DX: J44.0 Chronic obstructive pulmonary disease with (acute) lower respiratory infection (principal); J20.9 Acute bronchitis, unspecified; J44.1 Chronic obstructive pulmonary disease with (acute) exacerbation; J00 Acute nasopharyngitis [common cold]; A31.0 Pulmonary mycobacterial infection; Z87.891 Personal history of nicotine dependence; E66.9 Obesity, unspecified; J98.4 Other disorders of lung; Z68.31 Body mass index [BMI] 31.0-31.9, adult
CPT/HCPCS: 36415 ×2; 71045; 71250; 80048; 80053; 82550 ×2; 82553 ×2; 83880; 84484 ×2; 85025 ×2; 87040; 93005; 93306; 94640 ×4; 99284; G0378 ×3; J1650 ×3; J1956; J2920 ×3; J2930; J7030; J7120 ×2

== ENCOUNTER 2021-10-01 10:58 | Emergency (ER) | payer MEDICARE, OTHER ==
[~2021-10-01] VITALS: Ht 175.3 cm; Wt 50.8 kg
[~2021-10-01 10:58] MED LIST changes: +ATORVASTATIN CA20 MG PO; +COREG3.125 MG PO; +RIFAMPIN300 MG PO
[2021-10-01] MEDS ORDERED: ACETAMINOPHEN 325 MG TAB PO ONE (11:30)
[2021-10-01] MEDS ORDERED: BEBTELOVIMAB 175 MG INJ IV ONE (13:45)
== END 2021-10-01 16:00 | disposition home or self-care (01) ==
LOC: ER 11:17
DX: R50.9 Fever, unspecified (principal); U07.1 COVID-19; R05.9 Cough, unspecified; I10 Essential (primary) hypertension; E78.5 Hyperlipidemia, unspecified; J44.9 Chronic obstructive pulmonary disease, unspecified; I25.2 Old myocardial infarction
CPT/HCPCS: 71045; 99282; U0002

== ENCOUNTER 2022-06-11 17:59 | Inpatient (IN) | payer MEDICARE, OTHER ==
[~2022-06-11] VITALS: Ht 175.3 cm; Wt 50.8 kg
[2022-06-11] MEDS ORDERED: SODIUM CHLORIDE 0.9% 1000ML 1,000 ML IV ONE (18:30)
[2022-06-11 18:59] LABS: BASOPHILS % 0.3 % (0.0-1.0); EOSINOPHILS # (AUTO) 0.1 (0.0-0.4); EOSINOPHILS % 0.6 % (0.0-6.0); HEMATOCRIT 39.9 % (38.2-49.6); HEMOGLOBIN 13.9 g/dL (14.0-18.0); LYMPHOCYTES # (AUTO) 1.6 (1.0-3.2); LYMPHOCYTES % 11.7 % (18.0-39.1); MEAN CORPUSCULAR HEMOGLOBIN 34.6 pg (28-32); MEAN CORPUSCULAR HGB CONC 34.8 g/dL (31-35); MEAN CORPUSCULAR VOLUME 99.3 fL (81-99); MONOCYTES # (AUTO) 1.5 (0.2-0.8); MONOCYTES % 10.5 % (4.4-11.3); NEUTROPHILS # (AUTO) 10.7 (2.1-6.9); NEUTROPHILS % 76.4 % (38.7-80.0); PLATELET COUNT 244 x10e3/uL (140-360); RED BLOOD COUNT 4.02 x10e6/uL (4.3-5.7); RED CELL DISTRIBUTION WIDTH 12.4 % (11.7-14.4)
[2022-06-11 19:14] LABS: INR 1.13; PROTHROMBIN TIME 14.7 seconds (11.9-14.5)
[2022-06-11 19:21] LABS: ALBUMIN 3.1 g/dL (3.5-5.0); ALBUMIN/GLOBULIN RATIO 0.8 (0.8-2.0); ANION GAP 12.1 mmol/L (8-16); CALCIUM 8.8 mg/dL (8.4-10.2); CREATININE, SERUM 1.35 mg/dL (0.72-1.25); POTASSIUM 3.1 mmol/L (3.5-5.1)
[2022-06-11] MEDS ORDERED: ALBUTEROL/IPRATROPIUM 3 ML NEB NEB ONE (19:45)
[2022-06-11] MEDS ORDERED: METHYLPREDNISOLONE SOD SUCC 125 MG/2ML VIAL IV ONE (19:45)
[2022-06-11] MEDS ORDERED: SODIUM CHLORIDE FLUSH 10 ML SYR INJ PRN (20:15)
[2022-06-11] MEDS ORDERED: ONDANSETRON HCL INJ 2MG/ML 2ML 2 MG/ML VIAL IV PRN (20:15)
[2022-06-11] MEDS ORDERED: ALBUTEROL/IPRATROPIUM 3 ML NEB ONE (20:20)
[2022-06-11] MEDS: ALBUTEROL SULF 0.083% NEB SOLN 3 ML NEB NEB SCH (23:20)
[2022-06-12] VITALS (10 sets, daily range): BP systolic 112–127; BP diastolic 65–80
[2022-06-12] MEDS ORDERED: SODIUM CHLORIDE 0.9% 1000ML 1,000 ML ONE (00:13)
[2022-06-12 06:53] LABS: BASOPHILS % 0.1 % (0.0-1.0); HEMATOCRIT 35.2 % (38.2-49.6); HEMOGLOBIN 12.7 g/dL (14.0-18.0); LYMPHOCYTES # (AUTO) 0.5 (1.0-3.2); LYMPHOCYTES % 6.2 % (18.0-39.1); MEAN CORPUSCULAR HEMOGLOBIN 36.9 pg (28-32); MEAN CORPUSCULAR HGB CONC 36.1 g/dL (31-35); MEAN CORPUSCULAR VOLUME 102.3 fL (81-99); MONOCYTES # (AUTO) 0.1 (0.2-0.8); MONOCYTES % 1.8 % (4.4-11.3); NEUTROPHILS # (AUTO) 7.1 (2.1-6.9); PLATELET COUNT 199 x10e3/uL (140-360); RED BLOOD COUNT 3.44 x10e6/uL (4.3-5.7); RED CELL DISTRIBUTION WIDTH 12.7 % (11.7-14.4)
[2022-06-12 07:18] LABS: ANION GAP 12.8 mmol/L (8-16); CALCIUM 8.6 mg/dL (8.4-10.2); CREATININE, SERUM 1.08 mg/dL (0.72-1.25); POTASSIUM 3.8 mmol/L (3.5-5.1)
[2022-06-12] MEDS: ALBUTEROL SULF 0.083% NEB SOLN 3 ML NEB NEB SCH ×2 (07:58→11:38)
[2022-06-12] MEDS: METHYLPREDNISOLONE SOD SUCC 125 MG/2ML VIAL IV SCH ×2 (08:53→21:56)
[2022-06-12] MEDS ORDERED: GUAIFENESIN/DEXTROMETHORPHAN LIQD 5 ML UDC NG PRN (11:00)
[2022-06-12] MEDS: CARVEDILOL 3.125 MG TAB PO SCH ×2 (11:00→23:00)
[2022-06-12] MEDS ORDERED: DOCUSATE SODIUM 100 MG CAP PO PRN (11:15)
[2022-06-12] MEDS ORDERED: MELATONIN 3 MG TAB PO PRN (11:15)
[2022-06-12] MEDS: BENZONATATE 100 MG CAP PO SCH ×2 (12:56→22:00)
[2022-06-12] MEDS: FAMOTIDINE 20 MG TAB PO SCH (16:30)
[2022-06-12] MEDS: DOCUSATE SODIUM 100 MG CAP PO SCH (17:00)
[2022-06-12] MEDS: ENOXAPARIN SOD INJ 40 MG/0.4 ML SYR SC SCH (17:00)
[2022-06-12] MEDS ORDERED: SODIUM CHLORIDE 0.9% 250ML 250 ML ONE (20:26)
[2022-06-12] MEDS: ATORVASTATIN 40 MG TAB PO SCH (22:00)
[2022-06-13 00:05] VITALS: BP 109/65
[2022-06-13 04:00] VITALS: BP 113/54
[2022-06-13 05:02] LABS: BASOPHILS % 0.2 % (0.0-1.0); HEMATOCRIT 37.2 % (38.2-49.6); HEMOGLOBIN 12.8 g/dL (14.0-18.0); LYMPHOCYTES # (AUTO) 0.9 (1.0-3.2); MEAN CORPUSCULAR HGB CONC 34.4 g/dL (31-35); MEAN CORPUSCULAR VOLUME 98.9 fL (81-99); MONOCYTES # (AUTO) 0.7 (0.2-0.8); MONOCYTES % 5.9 % (4.4-11.3); NEUTROPHILS # (AUTO) 10.4 (2.1-6.9); NEUTROPHILS % 86.2 % (38.7-80.0); PLATELET COUNT 275 x10e3/uL (140-360); RED BLOOD COUNT 3.76 x10e6/uL (4.3-5.7); RED CELL DISTRIBUTION WIDTH 11.9 % (11.7-14.4)
[2022-06-13 05:28] LABS: ANION GAP 12.9 mmol/L (8-16); CALCIUM 9.2 mg/dL (8.4-10.2); CREATININE, SERUM 0.98 mg/dL (0.72-1.25); POTASSIUM 3.9 mmol/L (3.5-5.1)
[2022-06-13] MEDS: FAMOTIDINE 20 MG TAB PO SCH ×2 (07:30→16:30)
[2022-06-13] MEDS: DOCUSATE SODIUM 100 MG CAP PO SCH ×2 (09:00→16:31)
[2022-06-13 09:01] VITALS: BP 115/65
[2022-06-13] MEDS: METHYLPREDNISOLONE SOD SUCC 125 MG/2ML VIAL IV SCH ×2 (09:49→20:14)
[2022-06-13] MEDS: BENZONATATE 100 MG CAP PO SCH ×3 (09:50→20:14)
[2022-06-13] MEDS: MONTELUKAST SODIUM 10 MG TAB PO SCH (09:51)
[2022-06-13] MEDS: CARVEDILOL 3.125 MG TAB PO SCH ×2 (11:00→22:36)
[2022-06-13 12:18] VITALS: BP 133/78
[2022-06-13] MEDS: IPRATROPIUM BROMIDE 0.02% 2.5 ML NEB NEB PRN ×2 (14:20→19:40)
[2022-06-13] MEDS: ENOXAPARIN SOD INJ 40 MG/0.4 ML SYR SC SCH (16:38)
[2022-06-13 16:41] VITALS: BP 133/76
[2022-06-13 20:00] VITALS: BP 121/70
[2022-06-13] MEDS: ATORVASTATIN 40 MG TAB PO SCH (20:14)
[2022-06-14] VITALS: BP 129/67
[2022-06-14] MEDS: IPRATROPIUM BROMIDE 0.02% 2.5 ML NEB NEB PRN ×2 (01:45→07:08)
[2022-06-14 04:00] VITALS: BP 124/75
[2022-06-14] MEDS: FAMOTIDINE 20 MG TAB PO SCH (07:30)
[2022-06-14 08:49] LABS: BASOPHILS % 0.2 % (0.0-1.0); HEMATOCRIT 40.8 % (38.2-49.6); HEMOGLOBIN 13.8 g/dL (14.0-18.0); LYMPHOCYTES # (AUTO) 1.1 (1.0-3.2); MEAN CORPUSCULAR HGB CONC 33.8 g/dL (31-35); MEAN CORPUSCULAR VOLUME 100.5 fL (81-99); MONOCYTES # (AUTO) 0.7 (0.2-0.8); MONOCYTES % 5.6 % (4.4-11.3); NEUTROPHILS # (AUTO) 10.1 (2.1-6.9); NEUTROPHILS % 83.9 % (38.7-80.0); PLATELET COUNT 357 x10e3/uL (140-360); RED BLOOD COUNT 4.06 x10e6/uL (4.3-5.7); RED CELL DISTRIBUTION WIDTH 12.1 % (11.7-14.4)
[2022-06-14 09:05] LABS: ANION GAP 14.4 mmol/L (8-16); CALCIUM 9.7 mg/dL (8.4-10.2); CREATININE, SERUM 1.08 mg/dL (0.72-1.25); POTASSIUM 3.4 mmol/L (3.5-5.1)
[2022-06-14 09:29] VITALS: BP 111/74
[2022-06-14] MEDS: BENZONATATE 100 MG CAP PO SCH (09:31)
[2022-06-14] MEDS: METHYLPREDNISOLONE SOD SUCC 125 MG/2ML VIAL IV SCH (09:31)
[2022-06-14] MEDS: MONTELUKAST SODIUM 10 MG TAB PO SCH (09:31)
[2022-06-14] MEDS: DOCUSATE SODIUM 100 MG CAP PO SCH (09:34)
[2022-06-14 09:47] VITALS: BP 111/74
[2022-06-14] MEDS ORDERED: PREDNISONE20 MG PO (09:50)
[2022-06-14] MEDS ORDERED: CEPHALEXIN500 MG PO (09:50)
[2022-06-14] MEDS ORDERED: AZITHROMYCIN500 MG PO (09:50)
[2022-06-14] MEDS ORDERED: POTASSIUM CHLORIDE 20 MEQ TAB CR PO ONE (10:30)
[2022-06-14] MEDS ORDERED: AZITHROMYCIN 250 MG TAB PO SCH (16:00)
== END 2022-06-14 10:58 | disposition home or self-care (01) | DRG 194 ==
LOC: ER 18:04 → ERHOLD 20:11 → MED/SURG2 06-12 02:11
PROVIDERS: ADMIT Internal Medicine; ATTEND Internal Medicine
DX: J18.9 Pneumonia, unspecified organism (principal); D84.821 Immunodeficiency due to drugs; J44.1 Chronic obstructive pulmonary disease with (acute) exacerbation; J96.10 Chronic respiratory failure, unspecified whether with hypoxia or hypercapnia; N17.9 Acute kidney failure, unspecified; E87.6 Hypokalemia; R91.1 Solitary pulmonary nodule; J30.9 Allergic rhinitis, unspecified; I12.9 Hypertensive chronic kidney disease with stage 1 through stage 4 chronic kidney disease, or unspecified chronic kidney disease; N18.1 Chronic kidney disease, stage 1; I25.2 Old myocardial infarction; Z99.81 Dependence on supplemental oxygen; Z20.822 Contact with and (suspected) exposure to COVID-19; Z87.891 Personal history of nicotine dependence; Z85.46 Personal history of malignant neoplasm of prostate; Z79.82 Long term (current) use of aspirin
CPT/HCPCS: 36415; 71045; 80048; 80053; 83605; 84484; 85025; 85610; 87040; 93005; 94640; 94799; 99284; J0456; J0696; J1650; J2930; J7030; J7050

== ENCOUNTER 2023-11-18 16:45 | Emergency (ER) | payer MEDICARE ==
[~2023-11-18] VITALS: Ht 170.2 cm; Wt 97.5 kg
[~2023-11-18 16:45] MED LIST changes: +AZITHROMYCIN500 MG PO; +CEPHALEXIN500 MG PO; +PREDNISONE50 MG PO
[2023-11-18 17:12] VITALS: PULSE 71; RESP 18; TEMP 98.1
[2023-11-18 17:57] VITALS: BP 108/65; O2SAT 96
== END 2023-11-18 17:57 | disposition home or self-care (01) ==
LOC: ER 17:04
DX: R41.0 Disorientation, unspecified (principal); J44.9 Chronic obstructive pulmonary disease, unspecified; R42 Dizziness and giddiness; I10 Essential (primary) hypertension; E78.5 Hyperlipidemia, unspecified; I25.2 Old myocardial infarction
CPT/HCPCS: 99282

== ENCOUNTER 2024-07-06 17:04 | Inpatient (IN) | payer MEDICARE ==
[~2024-07-06] VITALS: Ht 172.7 cm; Wt 86.2 kg
[2024-07-06 17:10] VITALS: TEMP 98.5
[2024-07-06 17:44] LABS: BASOPHILS # (AUTO) 0.1 (0.0-0.1); BASOPHILS % 0.5 % (0.0-1.0); EOSINOPHILS # (AUTO) 0.3 (0.0-0.4); EOSINOPHILS % 2.8 % (0.0-6.0); HEMATOCRIT 42.8 % (38.2-49.6); LYMPHOCYTES # (AUTO) 2.8 (1.0-3.2); MEAN CORPUSCULAR HEMOGLOBIN 33.8 pg (28-32); MEAN CORPUSCULAR VOLUME 96.4 fL (81-99); MONOCYTES # (AUTO) 1.1 (0.2-0.8); MONOCYTES % 11.5 % (4.4-11.3); NEUTROPHILS # (AUTO) 5.2 (2.1-6.9); NEUTROPHILS % 55.1 % (38.7-80.0); PLATELET COUNT 322 x10e3/uL (140-360); RED BLOOD COUNT 4.44 x10e6/uL (4.3-5.7); RED CELL DISTRIBUTION WIDTH 12.8 % (11.7-14.4); WHITE BLOOD COUNT 9.48 x10e3/uL (4.8-10.8)
[2024-07-06 17:57] LABS: INR 0.91; PROTHROMBIN TIME 12.8 seconds (11.9-14.5)
[2024-07-06 17:58] LABS: PARTIAL THROMBOPLASTIN TIME 30.2 seconds (23.8-35.5)
[2024-07-06 18:04] LABS: CORONAVIRUS COVID-19 AG NEGATIVE (NEGATIVE); INFLUENZA A AG NEGATIVE (NEGATIVE); INFLUENZA B AG NEGATIVE (NEGATIVE)
[2024-07-06 18:07] LABS: ALANINE AMINOTRANSFERASE 10 IU/L (0-55); ALBUMIN 3.8 g/dL (3.5-5.0); ALBUMIN/GLOBULIN RATIO 1.1 (0.8-2.0); ALKALINE PHOSPHATASE 66 IU/L (40-150); ANION GAP 15.8 mmol/L (8-16); BILIRUBIN,TOTAL 1.2 mg/dL (0.2-1.2); BLOOD UREA NITROGEN 24 mg/dL (7-26); BUN/CREATININE RATIO 16 (6-25); CALCIUM 9.8 mg/dL (8.4-10.2); CARBON DIOXIDE 22 mmol/L (22-29); CHLORIDE 105 mmol/L (98-107); CREATINE KINASE 35 IU/L (30-200); EST GLOMERULAR FILTRATION RATE 48 ML/MIN (>=60); GLUCOSE 112 mg/dL (74-118); POTASSIUM 3.8 mmol/L (3.5-5.1); SODIUM 139 mmol/L (136-145); TOTAL PROTEIN 7.2 g/dL (6.5-8.1)
[2024-07-06 18:14] LABS: TROPONIN I < 0.001 ng/mL (0-0.300)
[2024-07-06] MEDS ORDERED: ONDANSETRON HCL INJ 2MG/ML 2ML 2 MG/ML VIAL IV PRN (18:45)
[2024-07-06] MEDS ORDERED: SODIUM CHLORIDE FLUSH 10 ML SYR INJ PRN (18:45)
[2024-07-06] MEDS: ALBUTEROL/IPRATROPIUM 3 ML NEB NEB SCH ×2 (19:00→23:54)
[2024-07-06 19:03] VITALS: PULSE 79; RESP 20; O2SAT 99
[2024-07-06] MEDS: SODIUM CHLORIDE 0.9% 1000ML 1,000 ML IV ONE (19:04)
[2024-07-06] MEDS: METHYLPREDNISOLONE SOD SUCC 125 MG/2ML VIAL IV ONE (19:04)
[2024-07-06] MEDS: ALBUTEROL/IPRATROPIUM 3 ML NEB NEB ONE (19:10)
[2024-07-06 20:00] VITALS: PULSE 79; RESP 20
[2024-07-06] MEDS: DOXYCYCLINE HYCLATE TABLET 100 MG TAB PO SCH (21:31)
[2024-07-06] MEDS ORDERED: XTANDI80 MG PO (21:53)
[2024-07-06] MEDS ORDERED: MELOXICAM7.5 MG PO (21:53)
[2024-07-06] MEDS ORDERED: FLONASE ALLERG9.9 ML INH (21:53)
[2024-07-06] MEDS ORDERED: SYNTHROID100 MCG PO (21:53)
[2024-07-06] MEDS ORDERED: FLOMAX0.4 MG PO (21:53)
[2024-07-06 22:04] VITALS: BP 119/64; PULSE 73; RESP 20; TEMP 98.4; O2SAT 99
[2024-07-06 22:56] VITALS: BP 119/64; PULSE 73; RESP 20; TEMP 98.4; O2SAT 99
[2024-07-06 23:51] VITALS: PULSE 70; RESP 18; O2SAT 97
[2024-07-07] VITALS (11 sets, daily range): BP systolic 104–127; BP diastolic 55–73; PULSE 72–96; RESP 18–20; TEMP 97.2–97.8; O2SAT 95–100
[2024-07-07] MEDS: METHYLPREDNISOLONE SOD SUCC 40 MG/ML VIAL 1ML IV SCH (01:41)
[2024-07-07] MEDS ORDERED: MELATONIN 3 MG TAB PO PRN (05:00)
[2024-07-07] MEDS ORDERED: ACETAMINOPHEN 325 MG TAB PO PRN (05:00)
[2024-07-07] MEDS: CARVEDILOL 3.125 MG TAB PO SCH (05:00)
[2024-07-07] MEDS: LEVOTHYROXINE SODIUM 100 MCG TAB PO SCH (05:31)
[2024-07-07 07:55] LABS: BASOPHILS % 0.4 % (0.0-1.0); HEMATOCRIT 41.5 % (38.2-49.6); HEMOGLOBIN 14.1 g/dL (14.0-18.0); LYMPHOCYTES # (AUTO) 0.8 (1.0-3.2); LYMPHOCYTES % 11.1 % (18.0-39.1); MEAN CORPUSCULAR HEMOGLOBIN 34.1 pg (28-32); MEAN CORPUSCULAR VOLUME 100.5 fL (81-99); MONOCYTES # (AUTO) 0.2 (0.2-0.8); MONOCYTES % 2.6 % (4.4-11.3); NEUTROPHILS # (AUTO) 6.2 (2.1-6.9); NEUTROPHILS % 84.4 % (38.7-80.0); PLATELET COUNT 265 x10e3/uL (140-360); RED BLOOD COUNT 4.13 x10e6/uL (4.3-5.7); RED CELL DISTRIBUTION WIDTH 12.6 % (11.7-14.4); WHITE BLOOD COUNT 7.38 x10e3/uL (4.8-10.8)
[2024-07-07 08:12] LABS: ALBUMIN 3.5 g/dL (3.5-5.0); ALBUMIN/GLOBULIN RATIO 1.1 (0.8-2.0); ANION GAP 15.3 mmol/L (8-16); BILIRUBIN,TOTAL 0.8 mg/dL (0.2-1.2); CALCIUM 9.1 mg/dL (8.4-10.2); CREATININE, SERUM 1.41 mg/dL (0.72-1.25); POTASSIUM 4.3 mmol/L (3.5-5.1); TOTAL PROTEIN 6.7 g/dL (6.5-8.1)
[2024-07-07] MEDS: GUAIFENESIN 600MG/DEXTROMETHORPHAN 30MG TABSR PO SCH (09:49)
[2024-07-07] MEDS: MONTELUKAST SODIUM 10 MG TAB PO SCH (09:49)
[2024-07-07] MEDS: BENZONATATE 100 MG CAP PO SCH (09:49)
[2024-07-07] MEDS: ASPIRIN 81 MG CHEW TAB PO SCH (09:49)
[2024-07-07] MEDS: FAMOTIDINE 20 MG TAB PO ONE (09:50)
[2024-07-07] MEDS: LORATADINE 10 MG TAB PO SCH (09:50)
[2024-07-07] MEDS: TAMSULOSIN HCL 0.4 MG CAP PO SCH (09:50)
[2024-07-07] MEDS: DOCUSATE SODIUM 100 MG CAP PO SCH (09:50)
[2024-07-07] MEDS: ENOXAPARIN SOD INJ 40 MG/0.4 ML SYR SC SCH (17:42)
[2024-07-07] MEDS: ATORVASTATIN 40 MG TAB PO SCH (21:06)
[2024-07-08] VITALS (12 sets, daily range): BP systolic 94–113; BP diastolic 45–72; PULSE 69–102; RESP 18–20; TEMP 97.6–98.3; O2SAT 96–100
[2024-07-08 06:00] LABS: BASOPHILS % 0.2 % (0.0-1.0); HEMATOCRIT 39.2 % (38.2-49.6); HEMOGLOBIN 13.3 g/dL (14.0-18.0); LYMPHOCYTES # (AUTO) 0.8 (1.0-3.2); LYMPHOCYTES % 7.1 % (18.0-39.1); MEAN CORPUSCULAR HEMOGLOBIN 33.6 pg (28-32); MEAN CORPUSCULAR HGB CONC 33.9 g/dL (31-35); MONOCYTES # (AUTO) 0.6 (0.2-0.8); MONOCYTES % 5.2 % (4.4-11.3); NEUTROPHILS # (AUTO) 9.4 (2.1-6.9); NEUTROPHILS % 85.9 % (38.7-80.0); PLATELET COUNT 277 x10e3/uL (140-360); RED BLOOD COUNT 3.96 x10e6/uL (4.3-5.7); RED CELL DISTRIBUTION WIDTH 12.8 % (11.7-14.4); WHITE BLOOD COUNT 10.95 x10e3/uL (4.8-10.8)
[2024-07-08 06:25] LABS: ANION GAP 14.9 mmol/L (8-16); CALCIUM 8.7 mg/dL (8.4-10.2); CREATININE, SERUM 1.2 mg/dL (0.72-1.25); POTASSIUM 3.9 mmol/L (3.5-5.1)
[2024-07-08] MEDS: FAMOTIDINE 20 MG TAB PO SCH (08:27)
[2024-07-09 01:00] VITALS: PULSE 81; RESP 20; O2SAT 98
[2024-07-09 04:00] VITALS: BP 109/58; PULSE 66; RESP 18; TEMP 98.3; O2SAT 97
[2024-07-09 06:32] LABS: BASOPHILS % 0.2 % (0.0-1.0); HEMATOCRIT 40.5 % (38.2-49.6); HEMOGLOBIN 13.7 g/dL (14.0-18.0); LYMPHOCYTES # (AUTO) 0.8 (1.0-3.2); LYMPHOCYTES % 6.9 % (18.0-39.1); MEAN CORPUSCULAR HEMOGLOBIN 33.7 pg (28-32); MEAN CORPUSCULAR HGB CONC 33.8 g/dL (31-35); MEAN CORPUSCULAR VOLUME 99.8 fL (81-99); MONOCYTES # (AUTO) 0.6 (0.2-0.8); MONOCYTES % 4.9 % (4.4-11.3); NEUTROPHILS # (AUTO) 9.9 (2.1-6.9); NEUTROPHILS % 86.7 % (38.7-80.0); PLATELET COUNT 311 x10e3/uL (140-360); RED BLOOD COUNT 4.06 x10e6/uL (4.3-5.7); RED CELL DISTRIBUTION WIDTH 12.9 % (11.7-14.4); WHITE BLOOD COUNT 11.41 x10e3/uL (4.8-10.8)
[2024-07-09 06:42] LABS: ANION GAP 16.1 mmol/L (8-16); CALCIUM 8.7 mg/dL (8.4-10.2); CREATININE, SERUM 1.28 mg/dL (0.72-1.25); POTASSIUM 4.1 mmol/L (3.5-5.1)
[2024-07-09 08:00] VITALS: PULSE 69; RESP 18; O2SAT 99
[2024-07-09 08:21] VITALS: BP 112/71; PULSE 68; RESP 18; TEMP 97.9; O2SAT 100
[2024-07-09] MEDS: METHYLPREDNISOLONE SOD SUCC 40 MG/ML VIAL 1ML IV SCH (09:09)
[2024-07-09] MEDS ORDERED: ONDANSETRON HCL 4 MG ORAL DISINTEGRATING TAB PO PRN (11:30)
== END 2024-07-09 11:15 | disposition home or self-care (01) | DRG 190 ==
LOC: ER 18:33 → ERHOLD 18:44 → MED/SURG2 20:26 → OBSVTOIN 07-07 05:00
PROVIDERS: ADMIT Internal Medicine; ATTEND Internal Medicine
DX: J44.0 Chronic obstructive pulmonary disease with (acute) lower respiratory infection (principal); J18.9 Pneumonia, unspecified organism; J96.21 Acute and chronic respiratory failure with hypoxia; C79.51 Secondary malignant neoplasm of bone; J44.1 Chronic obstructive pulmonary disease with (acute) exacerbation; J84.10 Pulmonary fibrosis, unspecified; Z99.81 Dependence on supplemental oxygen; I10 Essential (primary) hypertension; E78.5 Hyperlipidemia, unspecified; I25.10 Atherosclerotic heart disease of native coronary artery without angina pectoris; C61 Malignant neoplasm of prostate; J43.9 Emphysema, unspecified; E03.9 Hypothyroidism, unspecified; Z11.52 Encounter for screening for COVID-19; E66.9 Obesity, unspecified; Z68.28 Body mass index [BMI] 28.0-28.9, adult; Z79.52 Long term (current) use of systemic steroids; Z79.82 Long term (current) use of aspirin; I25.2 Old myocardial infarction; Z90.5 Acquired absence of kidney; Z98.52 Vasectomy status; Z88.8 Allergy status to other drugs, medicaments and biological substances; Z87.891 Personal history of nicotine dependence
CPT/HCPCS: 36415; 71045; 71250; 80048; 80053; 82550; 83735; 83880; 84484; 85025; 85610; 85730; 93005; 94799; 99284; G0378; J0696; J1650; J2405; J2919; J7030

== ENCOUNTER 2024-07-18 13:18 | Emergency (ER) | payer MEDICARE ==
[~2024-07-18] VITALS: Ht 172.7 cm; Wt 102.1 kg
[~2024-07-18 13:18] MED LIST changes: +FLOMAX0.4 MG PO; +FLONASE ALLERG9.9 ML INH; +MELOXICAM7.5 MG PO; +SYNTHROID100 MCG PO; +XTANDI80 MG PO
[2024-07-18 17:21] LABS: BASOPHILS % 0.3 % (0.0-1.0); EOSINOPHILS % 0.1 % (0.0-6.0); HEMATOCRIT 42.8 % (38.2-49.6); HEMOGLOBIN 14.5 g/dL (14.0-18.0); LYMPHOCYTES # (AUTO) 1.5 (1.0-3.2); LYMPHOCYTES % 20.5 % (18.0-39.1); MEAN CORPUSCULAR HGB CONC 33.9 g/dL (31-35); MEAN CORPUSCULAR VOLUME 100.5 fL (81-99); MONOCYTES # (AUTO) 0.5 (0.2-0.8); MONOCYTES % 6.7 % (4.4-11.3); NEUTROPHILS # (AUTO) 5.1 (2.1-6.9); NEUTROPHILS % 71.4 % (38.7-80.0); PLATELET COUNT 254 x10e3/uL (140-360); RED BLOOD COUNT 4.26 x10e6/uL (4.3-5.7); RED CELL DISTRIBUTION WIDTH 12.5 % (11.7-14.4); WHITE BLOOD COUNT 7.17 x10e3/uL (4.8-10.8)
[2024-07-18 17:40] LABS: ALBUMIN 3.6 g/dL (3.5-5.0); ALBUMIN/GLOBULIN RATIO 1.1 (0.8-2.0); ANION GAP 14.5 mmol/L (8-16); BILIRUBIN,TOTAL 1.1 mg/dL (0.2-1.2); CALCIUM 9.9 mg/dL (8.4-10.2); CREATININE, SERUM 1.41 mg/dL (0.72-1.25); POTASSIUM 4.5 mmol/L (3.5-5.1)
[2024-07-18 18:55] VITALS: PULSE 68; RESP 17; TEMP 98.6; O2SAT 98
== END 2024-07-18 19:02 | disposition home or self-care (01) ==
LOC: ER 15:32
DX: R06.02 Shortness of breath (principal); J44.9 Chronic obstructive pulmonary disease, unspecified; R94.31 Abnormal electrocardiogram [ECG] [EKG]
CPT/HCPCS: 36415; 71046; 80053; 84484; 85025; 93005; 99284